=== PATIENT | male | born 1950 | race Caucasian/White ===

== ENCOUNTER 2020-02-02 17:07 | Inpatient (IN) ==
[2020-02-02] MEDS ORDERED: SODIUM CHLORIDE 0.9% 1000ML 1,000 ML IV SCH (19:30)
--- NOTE | 2020-02-02 19:30 | Emergency Department Note ---
Impression & Plan Lower gastrointestinal hemorrhage ED Provider Note NAME: SRINIVASAN FREEDMAN AGE: 69 SEX: M : 1950 ARRIVES VIA: Walk-In INFORMANT: Patient, ED PROVIDER(S): Ernie Thurman DO CHIEF COMPLAINT: Rectal bleeding HPI: The patient is a 69-year-old male who started noticing rectal bleeding last week. The patient has not had a history of similar episodes in the past. He did not see his family doctor for any symptoms. The patient states that it is ongoing and intermittent especially with any bowel movements. He has had some firm stools but for the most part it is been loose and bloody. He denies having any abdominal pain. He is had no nausea or vomiting. He notices no rashes. The patient does note significant shortness of breath with any exertion. He is also noticed generalized weakness. The patient does not take any blood thinners. He does have a history of hypertension. ROS: See above HPI for pertinent positives & negatives. A total of 10 systems reviewed and were otherwise negative. PAST MEDICAL HISTORY: See Below PAST SURGICAL HISTORY: See Below FAMILY HISTORY: See Below SOCIAL HISTORY: See Below HOME MEDICATIONS: See Below ALLERGIES: See Below VITALS: See Below PHYSICAL EXAMINATION: GENERAL: The patient is awake and alert. He is somewhat anxious appearing but overall comfortable. EYES: The conjunctivae are clear. The pupils are round and reactive. EARS, NOSE, MOUTH AND THROAT: The nose is without any evidence of any deformity. Mucous membranes are moist. Tongue is midline. NECK: The neck is nontender and supple. RESPIRATORY: Normal respiratory effort is noted there is no evidence of wheezing rhonchi or rales CARDIOVASCULAR: R tachycardic rate with regular rhythm was noted. There was no definite murmur. GASTROINTESTINAL: The abdomen is soft and nondistended. Stool was grossly bloody. MUSCULOSKELETAL/EXTREMITIES: There is no evidence of gross deformity full range of motion is noted in the hips and shoulders. SKIN: Skin was pale and dry. No pedal edema was noted. NEUROLOGIC: Patient is awake alert and oriented x3. MEDICAL DECISION MAKING: The patient is a 69-year-old male who presented to the emergency department for an evaluation of rectal bleeding. The patient was found to have gross blood per rectum. He also had very significant dyspnea on exertion. The patient was found to have a hemoglobin that was low compared to his baseline. He was sent for a type and screen but did not receive a blood transfusion in the emergency department. I discussed the patient's laboratory and radiographic studies with him. [facility] also [facility] have agreed to evaluate the patient in the emergency department for further management and disposition. I discussed this plan with the patient he was agreeable Triage Nursing notes reviewed. Prior medical records reviewed Vital Signs: reviewed and remarkable for elevated blood pressure. Differential diagnosis: Diverticulosis, AVM, coagulopathy, colitis, inflammatory bowel disease, malignancy, Milla-Krishna tear, esophagitis, peptic ulcer disease, variceal bleed, gastritis, epistaxis, fissure, hemorrhoids, as well as other pathologies. ER treatment provided: See below Diagnostics interpreted by me: ECG: none Cardiac Monitoring: An order was placed for continuous cardiac monitoring. The monitor shows a rate of 95 with sinus rhythm. Laboratory studies: As stated above and show below. Imaging studies: See below Consultation(s): [facility] to evaluate the patient in the emergency department for further management and disposition. Past Med/Surg History Medical History Hypertension Social History Preferred Language: Wolof Communication Ability: Effective Cafeteria Supervisor Required: No Beliefs That Will Affect Care: None Current Living Situation: Alone Other Information That Helps Us Care for You: No Feels Safe at Home: Yes Safety Concerns: Feels Safe At This Time Smoking Status: Former smoker Do You Dip or Chew Tobacco: No ; Smoking End Date: 1989 ; Second Hand Exposure: No ; Tobacco Cessation Education Requested by Patient: No Hx Alcohol Use: Yes Alcohol type: beer Hx Substance Use: No Allergies Allergies Allergy/AdvReac Type Severity Reaction Status Date / Time No Known Allergies Allergy Verified 02/02/20 19:49 Home Meds Home Medications Medication Instructions Recorded Confirmed No Known Home Medications 02/02/20 02/02/20 Results & Data (ED) Vital Signs Vital Signs - 24 hr 02/02/20 17:20 02/02/20 19:30 02/02/20 19:31 Temperature 37.2 C Temperature Source Oral Pulse Rate 124 H Pulse Rate [Apical] 93 H Pulse Rate from SpO2 Sensor Pulse Rhythm Regular Pulse Strength Normal Respiratory Rate 20 20 Respiratory Effort / Characteristics Non-Labored Respiratory Depth Normal Normal Respiratory Pattern Regular Blood Pressure 135/85 Blood Pressure [Left Arm] 132/93 Blood Pressure Mean 101 Blood Pressure Mean [Left Arm] 106 Blood Pressure Position Sitting Pulse Oximetry 98 99 100 Oxygen Delivery Method Room Air Room Air Room Air Sepsis Recent Fever Within 48 Hours No Sepsis Action Taken by Nursing No Action Required 02/02/20 19:45 02/02/20 20:00 02/02/20 20:30 Temperature Temperature Source Pulse Rate 86 88 81 Pulse Rate [Apical] Pulse Rate from SpO2 Sensor 89 89 Pulse Rhythm Pulse Strength Respiratory Rate 22 19 12 Respiratory Effort / Characteristics Respiratory Depth Respiratory Pattern Blood Pressure 122/109 H 129/93 119/79 Blood Pressure [Left Arm] Blood Pressure Mean 116 107 84 Blood Pressure Mean [Left Arm] Blood Pressure Position Pulse Oximetry 100 99 100 Oxygen Delivery Method Room Air Room Air Room Air Sepsis Recent Fever Within 48 Hours Sepsis Action Taken by Nursing 02/02/20 21:00 Temperature Temperature Source Pulse Rate 100 H Pulse Rate [Apical] Pulse Rate from SpO2 Sensor 95 H Pulse Rhythm Pulse Strength Respiratory Rate 20 Respiratory Effort / Characteristics Respiratory Depth Respiratory Pattern Blood Pressure 138/96 Blood Pressure [Left Arm] Blood Pressure Mean 106 Blood Pressure Mean [Left Arm] Blood Pressure Position Pulse Oximetry 100 Oxygen Delivery Method Room Air Sepsis Recent Fever Within 48 Hours Sepsis Action Taken by Residential Medications Current Medication List: was personally reviewed by me Laboratory Data Attestation: I reviewed the patient's lab results. Result diagrams: 02/02/20 19:32 02/02/20 19:32 Lab Results 02/02/20 02/02/20 02/02/20 Range/Units 19:32 19:32 19:32 WBC 8.43 (4.8-10.8) K/uL RBC 3.62 L (4.7-6.1) M/uL Hgb 10.4 L (14.0-18.0) g/dL Hct 33.6 L (42-52) % MCV 92.8 (80-100) fL MCH 28.7 (25-34) pg MCHC 31.0 L (32-36) g/dL RDW Std Deviation 81.5 H (36.4-46.3) fL RDW Coeff of [place] 24.5 H (11.5-14.5) % Plt Count 201 (130-400) K/uL Immature Gran % (Auto) 0.2 % Neut % (Auto) 66.6 % Lymph % (Auto) 25.4 % [place] % (Auto) 6.6 % Eos % (Auto) 1.1 % Baso % (Auto) 0.1 % Neut # (Auto) 5.61 (1.4-6.5) K/uL Lymph # (Auto) 2.14 (1.2-3.4) K/uL [place] # (Auto) 0.56 (0.11-0.59) K/uL Eos # (Auto) 0.09 (0-0.5) K/uL Baso # (Auto) 0.01 (0-0.2) K/uL Immature Gran # (Auto) 0.02 (0.00-0.02) K/uL Absolute Nucleated RBC 0.07 H (0-0) K/uL Nucleated RBC % (auto) 0.8 % Giant Platelets 1+ Basophilic Stippling 1+ Pappenheimer Bodies 1+ PT 11.0 (9.0-12.0) Seconds INR 1.0 (0.9-1.1) APTT 26.0 (21.0-31.0) Seconds PTT Ratio 0.9 Sodium (136-145) mmol/L Potassium (3.5-5.1) mmol/L Chloride (98-107) mmol/L Carbon Dioxide (21-32) mmol/L Anion Gap (3-11) BUN (7-18) mg/dl Creatinine (0.6-1.4) mg/dl Est Cr Clr Drug Dosing ml/min Est GFR ( Amer) Est GFR (Non-Af Amer) BUN/Creatinine Ratio (10-20) Glucose (70-99) mg/dl Calcium (8.5-10.1) mg/dl Total Bilirubin (0.2-1) mg/dl AST (15-37) U/L ALT (12-78) U/L Alkaline Phosphatase (45-117) U/L Troponin I (0-0.045) ng/ml Total Protein (6.4-8.2) gm/dl Albumin (3.4-5.0) gm/dl Globulin (2.5-4.0) gm/dl Albumin/Globulin Ratio (0.9-2) Lipase (73-393) U/L Stl C. diff Tox B Gene (Neg) Blood Type O Positive Antibody Screen NEGATIVE 02/02/20 02/02/20 Range/Units 19:32 19:43 WBC (4.8-10.8) K/uL RBC (4.7-6.1) M/uL Hgb (14.0-18.0) g/dL Hct (42-52) % MCV (80-100) fL MCH (25-34) pg MCHC (32-36) g/dL RDW Std Deviation (36.4-46.3) fL RDW Coeff of [place] (11.5-14.5) % Plt Count (130-400) K/uL Immature Gran % (Auto) % Neut % (Auto) % Lymph % (Auto) % [place] % (Auto) % Eos % (Auto) % Baso % (Auto) % Neut # (Auto) (1.4-6.5) K/uL Lymph # (Auto) (1.2-3.4) K/uL [place] # (Auto) (0.11-0.59) K/uL Eos # (Auto) (0-0.5) K/uL Baso # (Auto) (0-0.2) K/uL Immature Gran # (Auto) (0.00-0.02) K/uL Absolute Nucleated RBC (0-0) K/uL Nucleated RBC % (auto) % Giant Platelets Basophilic Stippling Pappenheimer Bodies PT (9.0-12.0) Seconds INR (0.9-1.1) APTT (21.0-31.0) Seconds PTT Ratio Sodium 140 (136-145) mmol/L Potassium 3.7 (3.5-5.1) mmol/L Chloride 107 (98-107) mmol/L Carbon Dioxide 25 (21-32) mmol/L Anion Gap 8.0 (3-11) BUN 14 (7-18) mg/dl Creatinine 1.07 (0.6-1.4) mg/dl Est Cr Clr Drug Dosing 57.1 ml/min Est GFR ( Amer) 82.8 Est GFR (Non-Af Amer) 71.5 BUN/Creatinine Ratio 13.3 (10-20) Glucose 130 H (70-99) mg/dl Calcium 8.1 L (8.5-10.1) mg/dl Total Bilirubin 1.1 H (0.2-1) mg/dl AST 16 (15-37) U/L ALT 20 (12-78) U/L Alkaline Phosphatase 47 (45-117) U/L Troponin I 0.022 (0-0.045) ng/ml Total Protein 7.0 (6.4-8.2) gm/dl Albumin 3.7 (3.4-5.0) gm/dl Globulin 3.3 (2.5-4.0) gm/dl Albumin/Globulin Ratio 1.1 (0.9-2) Lipase 103 (73-393) U/L Stl C. diff Tox B Gene Negative Cdiff Gene (Neg) Blood Type Antibody Screen Administered Medications Sodium Chloride (Nss 1000ml) 1,000 mls @ 100 mls/hr IV .Q10H [facility] Stop: 03/04/20 00:59 Last Admin: 02/02/20 23:47 Dose: 100 mls/hr Documented by: [id number] Pantoprazole Sodium 40 mg/ (Syringe) 10 mls @ 5 mls/min IV BID JARETH Stop: 03/03/20 22:59 Last Admin: 02/02/20 23:43 Dose: Not Given Documented by: [id number] Multivitamins 10 ml/ Thiamine HCl 100 mg/ Folic Acid 1 mg/Sodium Chloride 1,011.2 mls @ 500 mls/hr IV .Q2H2M ONE Stop: 02/03/20 01:01 Last Admin: 02/02/20 23:43 Dose: Not Given Documented by: [id number] Thiamine HCl 100 mg/ Syringe 10 mls @ 2 mls/min IV QAM [facility] Stop: 03/03/20 22:59 Last Admin: 02/02/20 23:43 Dose: Not Given Documented by: [id number] Folic Acid 1 mg/ Syringe 10 mls @ 5 mls/min IV QAM [facility] Stop: 03/03/20 22:59 Last Admin: 02/02/20 23:43 Dose: Not Given Documented by: [id number] Discontinued Medications Gabapentin (Neurontin) 1,200 mg PO ONE ONE Stop: 02/02/20 23:01 Last Admin: 02/02/20 23:43 Dose: Not Given Documented by: [id number] Sodium Chloride (Nss 1000ml) 1,000 mls @ 999 mls/hr IV .Q1H1M JARETH Stop: 02/02/20 20:30 Last Infusion: 02/02/20 20:35 Dose: 0 mls/hr Documented by: [id number] Admin: 02/02/20 19:41 Dose: 999 mls/hr Documented by: [id number] Imaging Data Radiologist's Impression: SINGLE VIEW CHEST CLINICAL HISTORY: Atypical chest pain. FINDINGS: 2 AP, portable, upright chest radiographs are obtained. No prior studies are available for comparison at the time of dictation. The examination is degraded by portable technique and patient rotation. The cardiomediastinal silhouette is unremarkable. The lungs are hyperinflated with flattening of the diaphragm suggesting obstructive physiology. Scattered calcified granulomas are observed. There are calcified hilar lymph nodes. No airspace consolidation, large pleural effusion, or pneumothorax is seen. The bony thorax is grossly intact. Degenerative change and mild scoliosis are noted in the thoracic spine. IMPRESSION: No acute cardiopulmonary abnormality. ACT 112: Negative or not required by law. Electronically signed by: Theo Dodge M.D. 02/02/2020 8:17 PM Dictated: 02/02/202014 Transcribed: 02/02/202014 KUB CLINICAL HISTORY: Atypical chest pain. GI bleeding. FINDINGS: An AP, portable, supine abdominal radiograph is obtained. No prior studies are available for comparison at the time of dictation. There is a non obstructed abdominal bowel gas pattern. No evidence of intraperitoneal free air is seen on this supine image. There are no abnormal abdominal calcifications. The skeletal structures are osteopenic. 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 The bony pelvis appears intact. IMPRESSION: Nonobstructed abdominal bowel gas pattern. Electronically signed by: Theo Dodge M.D. 02/02/2020 8:34 PM Dictated: 02/02/202031 Transcribed: 02/02/202031 Blood Pressure Blood Pressure Findings: Elevated blood pressure Blood Pressure Disposition: further management by hospitalist Discharge Plan Visit Data *Final* Discharge Date/Time: 02/02/20 22:14 Chief Complaint: Rectal Bleed Stated Complaint: RECTAL BLEED ED Provider: Ernie Thurman Discharge Problem: Lower gastrointestinal hemorrhage Patient Disposition: Admitted As Inpatient Condition: Good Discharge Instructions Interventions: ED Discharge Assessment Last Done: 02/02/20 22:14
[2020-02-02 19:56] LABS: Basophils # (auto) 0.01 K/uL (0-0.2); Basophils % (auto) 0.1 %; Eosinophils # (auto) 0.09 K/uL (0-0.5); Eosinophils % (auto) 1.1 %; Hematocrit (blood only) 33.6 % (42-52); Hemoglobin 10.4 g/dL (14.0-18.0); Immature Granulocytes # (auto) 0.02 K/uL (0.00-0.02); Immature Granulocytes % (auto) 0.2 %; Lymphocytes # (auto) 2.14 K/uL (1.2-3.4); Lymphocytes % (auto) 25.4 %; Mean Corpuscular Hemoglobin 28.7 pg (25-34); Mean Corpuscular Volume 92.8 fL (80-100); Monocytes # (auto) 0.56 K/uL (0.11-0.59); Monocytes % (auto) 6.6 %; Neutrophils # (auto) 5.61 K/uL (1.4-6.5); Neutrophils % (auto) 66.6 %; Nucleated RBC # (auto) 0.07 K/uL (0-0); Nucleated RBC % (auto) 0.8 %; Platelet Count 201 K/uL (130-400); RDW Coefficient of Variation 24.5 % (11.5-14.5); RDW Standard Deviation 81.5 fL (36.4-46.3); Red Blood Count 3.62 M/uL (4.7-6.1); White Blood Count 8.43 K/uL (4.8-10.8)
[2020-02-02 20:07] LABS: Partial Thromboplastin Ratio 0.9
--- NOTE | 2020-02-02 20:18 | XRay Report ---
SINGLE VIEW CHEST CLINICAL HISTORY: Atypical chest pain. FINDINGS: 2 AP, portable, upright chest radiographs are obtained. No prior studies are available for comparison at the time of dictation. The examination is degraded by portable technique and patient ro tation. The cardiomediastinal silhouette is unremarkable. The lungs are hyperinflated with flattenin g of the diaphragm suggesting obstructive physiology. Scattered calcified granulomas are observed. Th ere are calcified hilar lymph nodes. No airspace consolidation, large pleural effusion, or pneumothor ax is seen. The bony thorax is grossly intact. Degenerative change and mild scoliosis are noted in th e thoracic spine. IMPRESSION: No acute cardiopulmonary abnormality. ACT 112: Negative or not required by law. Electronically signed by: Theo Dodge M.D. 02/02/2020 8:17 PM
[2020-02-02 20:19] LABS: Albumin Level 3.7 gm/dl (3.4-5.0); BUN Creatinine Ratio 13.3 (10-20); Calcium 8.1 mg/dl (8.5-10.1); Creatinine Clr Calc Pharmacy 57.1 ml/min; Est GFR (African American) 82.8; Est GFR (Non-African American) 71.5; Potassium 3.7 mmol/L (3.5-5.1)
[2020-02-02 20:25] LABS: Albumin Globulin Ratio 1.1 (0.9-2); Bilirubin,Total 1.1 mg/dl (0.2-1); Globulin 3.3 gm/dl (2.5-4.0); Troponin I 0.022 ng/ml (0-0.045)
[2020-02-02 20:33] LABS: Basophilic Stippling 1+; Giant Platelets 1+; Pappenheimer Bodies 1+
--- NOTE | 2020-02-02 20:35 | XRay Report ---
KUB CLINICAL HISTORY: Atypical chest pain. GI bleeding. FINDINGS: An AP, portable, supine abdominal radiograph is obtained. No prior studies are available fo r comparison at the time of dictation. There is a nonobstructed abdominal bowel gas pattern. No evide nce of intraperitoneal free air is seen on this supine image. There are no abnormal abdominal calcifi cations. The skeletal structures are osteopenic. 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 The bony pel vis appears intact. IMPRESSION: Nonobstructed abdominal bowel gas pattern. Electronically signed by: Theo Dodge M.D. 02/02/2020 8:34 PM
[2020-02-02] MEDS ORDERED: LORazepam 2 MG/4 ML VIAL IV PRN (22:46)
[2020-02-02] MEDS ORDERED: ACETAMINOPHEN 325 MG TAB PO PRN (22:46)
[2020-02-02] MEDS ORDERED: LORazepam 3 MG/6 ML VIAL IV PRN (22:46)
[2020-02-02] MEDS ORDERED: ONDANSETRON INJ 2 MG/ML 2 ML VIAL IV PRN (22:46)
[2020-02-02] MEDS ORDERED: ATIVAN IV ALCOHOL WITHDRAWL IV PRN (22:46)
[2020-02-02] MEDS ORDERED: GABAPENTIN 1200MG ALCOHOL WITHDRAWAL LOAD PO STA (22:46)
[2020-02-02] MEDS ORDERED: NITROGLYCERIN SL 0.4 MG/TAB TAB SL PRN (22:46)
[2020-02-02] MEDS ORDERED: LORazepam 1 MG/2 ML VIAL IV PRN (22:46)
[2020-02-02] MEDS: FOLIC ACID 1 MG in SYRINGE 9.8 ML IV SCH ×2 (23:24→23:43)
[2020-02-02] MEDS: MULTI-VITAMIN INFUSION 10 ML, THIAMINE HCL 100 MG, FOLIC ACID 1 MG in SODIUM CHLORIDE 0... IV ONE ×2 (23:24→23:43)
[2020-02-02] MEDS: GABAPENTIN 600 MG TAB PO ONE ×2 (23:24→23:43)
[2020-02-02] MEDS: THIAMINE HCL 100 MG in SYRINGE 9 ML IV SCH ×2 (23:24→23:43)
[2020-02-02] MEDS: PANTOprazole 40 MG in SYRINGE 0 ML IV SCH ×2 (23:24→23:43)
[2020-02-02] MEDS: SODIUM CHLORIDE 0.9% 1000ML 1,000 ML IV SCH (23:47)
--- NOTE | 2020-02-02 23:52 | History and Physical Report ---
DATE OF ADMISSION: 02/02/2020 CHIEF COMPLAINT: Rectal bleed. HISTORY OF PRESENT ILLNESS: A 69-year-old male with past medical history significant for hypertension, but no longer taking medications, past tobacco abuse. He says that he has smoked since the age of 12 and quit in the age of 32s and ongoing alcohol abuse, he states he drinks 3-4 beers every day. He lives with his son and son's girlfriend, but son and his girlfriend,are in [place] now and he is alone. The patient says since last Sunday he started to notice a bleed from his rectum. It started slowly and progressively got worse and he is not able to eat anything since last 3 days and feeling weak and tired and dizzy. In the ER, he was having multiple bowel episodes with blood in the stools and was dizzy while walking, so we were called for admission. His hemodynamics are stable. His hemoglobin is 10.4. Creatinine is 1.07. Currently resting comfortably and hemodynamically stable. He complains of mild abdominal discomfort. Normal bladder movements. No nausea, no vomiting, no chest pain, no shortness of breath, no cough, no dysphagia, no loss of sense of smell or taste. No headache, no blurred vision, no earache, no runny nose, no sore throat, no fever, no chills. ALLERGIES: No known drug allergies. PAST MEDICAL HISTORY: As mentioned above. PAST SURGICAL HISTORY: Had a cervical spine surgery in . MEDICATIONS: Currently not taking any medications. FAMILY HISTORY: Significant for father and brother had SC, paternal grandmother had glaucoma, mother had stroke. SOCIAL HISTORY: Former smoker as per [employer], quit in 2003, smoked 1 pack a day for 20 years. Alcohol 4 beers every day. No drug use. REVIEW OF SYSTEMS: As per HPI. Rest of review of systems negative. PHYSICAL EXAMINATION: GENERAL: The patient is of moderate build, not in acute distress. VITAL SIGNS: Temperature 37.2, pulse 81, respiratory rate 12, blood pressure 119/79, oxygen 100% on room air. HEENT: No pallor, no icterus. NECK: No JVD, no neck masses. CARDIOVASCULAR: S1, S2 heard, regular rate and rhythm, no murmur, no gallop. RESPIRATORY SYSTEM: Normal AP diameter. No accessory muscle use. No wheezing, no crackles. ABDOMEN: Soft, bowel sounds present. Mild abdominal discomfort. No guarding, no rigidity, no distention. CENTRAL NERVOUS SYSTEM: Cranial nerves II-XII grossly intact. Nonfocal. EXTREMITIES: No edema, no erythema. LABORATORY DATA: WBC 8.4, hemoglobin 10.4, hematocrit 33.6, platelets 201, PT 11, INR 1, APTT 26. Sodium 140, potassium 3.7, chloride 107, bicarbonate 25, BUN 14, creatinine 1.07, serum glucose 130, calcium 8.1, total bilirubin 1.1, AST 116, ALT 20, alkaline phosphatase 47. Troponin I of 0.022, lipase 103. Stool for C. diff negative. IMAGING DATA: Chest x-ray, no acute cardiopulmonary findings. KUB, nonobstructive abdominal bowel gas pattern. EKG: Shows sinus rhythm with PACs at a rate of 79, nonspecific ST abnormalities seen. ASSESSMENT AND PLAN: This is a 69-year-old male who presents with rectal bleeding. 1. Rectal bleeding ongoing from last Sunday. His hemoglobin is 10.4. We do not have his old hemoglobin levels. The patient is somewhat symptomatic when ambulating, but hemodynamically stable currently. We will follow H and H q. 6 hours. Blood consent was obtained. We will place on IV Protonix 40 b.i.d. We will get CT of abdomen and pelvis to check for any diverticular bleed or any other ongoing pathology. We will keep him n.p.o., IV fluids, and consult GI in the a.m. for further recommendations. 2. Tobacco abuse, currently quit smoking. 3. Alcohol abuse, says he drinks about 4 beers a day. We will do the alcohol withdrawal protocol with gabapentin, IV Ativan p.r.n. We will give banana bag, IV thiamine, IV folic acid from a.m. Actually patient refused withdrawal meds. Monitor for withdrawals. 4. History of hypertension, currently not on any medications. Currently blood pressure seems to be stable. Follow up with PCP. 5. Deep venous thrombosis prophylaxis, sequential compression devices. DISPOSITION: Admit to med/surg tele. Level 1 full code. Expect to discharge home and follow with family doctor. Addendum: Patient refused alcohol withdrawal meds. Am labs hb 7.7. ordered 2 units of prbc. MTDD
[2020-02-03 05:33] LABS: Mean Corpuscular Hgb Conc 32.8 g/dL (32-36); Nucleated RBC # (auto) 0.02 K/uL (0-0); Nucleated RBC % (auto) 0.4 %
[2020-02-03 05:42] LABS: Hematocrit (blood only) 23.5 % (42-52); Hemoglobin 7.7 g/dL (14.0-18.0); Mean Corpuscular Volume 91.4 fL (80-100); RDW Coefficient of Variation 24.2 % (11.5-14.5); RDW Standard Deviation 80.6 fL (36.4-46.3); Red Blood Count 2.57 M/uL (4.7-6.1); White Blood Count 4.93 K/uL (4.8-10.8)
[2020-02-03] MEDS: GABAPENTIN 600 MG TAB PO SCH ×3 (05:42→17:52)
[2020-02-03 06:02] LABS: Anisocytosis Present; Basophils # (auto) 0.01 K/uL (0-0.2); Basophils % (auto) 0.2 %; Eosinophils # (auto) 0.15 K/uL (0-0.5); Hypochromasia Present; Immature Granulocytes # (auto) 0.01 K/uL (0.00-0.02); Immature Granulocytes % (auto) 0.2 %; Lymphocytes # (auto) 1.58 K/uL (1.2-3.4); Monocytes # (auto) 0.41 K/uL (0.11-0.59); Monocytes % (auto) 8.3 %; Neutrophils # (auto) 2.77 K/uL (1.4-6.5); Neutrophils % (auto) 56.3 %; Platelet Count 146 K/uL (130-400); Platelet Estimate Normal (Normal)
[2020-02-03 06:07] LABS: BUN Creatinine Ratio 16.9 (10-20); Creatinine Clr Calc Pharmacy 79.2 ml/min; Est GFR (African American) 108.3; Est GFR (Non-African American) 93.4; Magnesium 2.1 mg/dl (1.8-2.4); Potassium 3.7 mmol/L (3.5-5.1)
[2020-02-03] MEDS ORDERED: SODIUM CHLORIDE 0.9% 250 ML IV PRN (06:08)
[2020-02-03] MEDS ORDERED: FUROSEMIDE 20 MG in SYRINGE 0 ML IV ONE (06:30)
--- NOTE | 2020-02-03 06:39 | CT Scan Report ---
CT abd pelvis wo con CT DOSE: 373.71 mGy.cm HISTORY: Bleeding rectal bleed. diverticulosis? TECHNIQUE: Multiaxial CT images of the abdomen and pelvis were performed without contrast. A dose lo wering technique was utilized adhering to the principles of ALARA. COMPARISON STUDY: None. FINDINGS: The lung bases are clear. The unenhanced liver, spleen, gallbladder, pancreas, kidneys, and adrenal glands are within normal limits. No bowel wall thickening or obstruction. The pelvic organs are unremarkable. No suspicious lytic or blastic osseous lesions. Scattered colonic diverticuli. No e vidence for diverticulitis. Bilateral renal cysts. No evidence for an obstructing urinary tract calcu iwona. IMPRESSION: 1. Bilateral renal cysts. 2. Scattered colonic diverticulosis. 3. Otherwise no acute process of the abdomen or pelvis. ACT 112: Negative or not required by law. The above report was generated using voice recognition software. It may contain grammatical, syntax or spelling errors. Electronically signed by: Artemio Thapa M.D. 02/03/2020 6:38 AM
[2020-02-03] MEDS ORDERED: ACETAMINOPHEN 325 MG TAB PO ONE (07:00)
--- NOTE | 2020-02-03 08:07 | Electrocardiogram Report ---
Test Reason : Blood Pressure : / mmHG Vent. Rate : 079 BPM Atrial Rate : 079 BPM P-R Int : 128 ms QRS Dur : 072 ms QT Int : 346 ms P-R-T Axes : 076 059 081 degrees QTc Int : 396 ms Sinus rhythm with Premature atrial complexes Nonspecific T wave abnormality Lateral leads Abnormal ECG When compared with ECG of 05-OCT-2003 13:49, Premature atrial complexes are now Present Nonspecific T wave abnormality now evident in Lateral leads Confirmed by Jorge Knight ([id number]) on 02/03/2020 8:06:46 AM Referred By: REFERRED SELF Confirmed By:Jorge Knight
--- NOTE | 2020-02-03 09:41 | Hospitalist Progress Note ---
Date of Service February 03, 2020 Assessment & Plan (1) Lower gastrointestinal hemorrhage: (2) Acute blood loss anemia: Blood ordered, GI to see Labs checked ROS-No Headache, No Visual Changes, No Nausea, No Vomiting, No Fever, No Chills, No Neck Pain or Stiffness, No Chest Pain, No Palpitations, No SOB, No BERMUDEZ, No Cough, No Sputum, No Wheezing, No Abdominal Pain, No Diarrhea, No Hematemesis, No Hemoptysis, No Unexpected Weight Loss, No Flank pain, No Melena, + H ematochezia, No Frequency, No Urgency, No Burning, No Hematuria, No Rashes, No Diaphoresis. Appetite is Normal Physical Exam Gen-AAO x 3, NAD, Afebrile, Poor Dentition Head-NCAT, EOMI, PERRLA, Anicteric Sclera, No Posterior Pharyngeal Erythema Neck-Supple, No JVD, No Thyromegaly, No Masses, No LAD, No Bruits Lungs-Clear to Auscultation Bilaterally, No Rales, No Rhonchi, No Wheezing, No Crepitus Chest-No S4, +S1, +S2, No S3, No Murmurs, No Rubs, No Gallops, No Ectopy Abdomen-Soft, Bowel Sounds Present, Non Tender, Non Distended, No Hepatomegaly, No Splenomegaly, No Palpable Masses, No Rebound, No Rigidity, No Guarding Musculoskeletal-Full Range of Motion Bilaterally, No CVAT Extremities-No Cyanosis, No Clubbing, No Edema Nuero-Cranial Nerves II-XII grossly intact, Motor WNL, DTRs WNL, Strength WNL, Non Focal Psych-Normal Mood Admission and Anticipated Discharge Date Admission Date: February 02, 2020 Results & Data Results & Data ([facility]) Vital Signs (Past 12 Hours) Vital Signs Temp Pulse Pulse Resp BP BP BP 02/03/20 08:47 36.5 C 72 16 108/68 02/03/20 08:17 36.6 C 72 18 113/71 02/03/20 08:02 36.5 C 72 16 133/69 02/03/20 07:57 36.5 C 66 17 131/78 02/03/20 07:56 81 02/03/20 07:44 36.6 C 85 16 125/77 02/03/20 04:38 36.6 C 79 16 99/61 L 02/02/20 23:52 85 02/02/20 22:40 36.8 C 90 16 163/87 H 02/02/20 22:14 92 H 14 125/77 Pulse Ox 02/03/20 08:47 97 02/03/20 08:17 99 02/03/20 08:02 100 02/03/20 07:57 100 02/03/20 07:56 02/03/20 07:44 99 02/03/20 04:38 99 02/02/20 23:52 02/02/20 22:40 99 02/02/20 22:14 100
--- NOTE | 2020-02-03 09:59 | Gastrointestinal Consultation ---
Date of Consultation February 03, 2020 Assessment & Plan (1) Acute blood loss anemia: (2) Lower gastrointestinal hemorrhage: Pt is a 69 y/o male admitted w anemia, BRPBR, abd pain started 3 days ago. Cdiff negative, stool cx pending. CT abd/pelvis w/o contrast showed scattered diverticuli in colon. No inflammation/thickening/obstruction signs. Pt never had colonoscopy before. DDX: PUD bleed, AVM, diverticular bleeding, infectious colitis less likely, IBD - F/U stool cx - Continue Protonix 40mg IV BID for now - Monitor H/H, transfuse prn - CL diet, NPO after midnight. Plan for EGD/colonoscopy eval tomorrow Supervising Physician Co-Signing Physician Notes I have personally seen and examined the patient with ELIZABETH Bradley. Her note reflects my exam and findings. I agree with her impression and plan. Will arrange EGD/[place]. Most c/w diverticular bleed. Esteban Herman M.D. History of Present Illness Reason for Consultation: Rectal Bleeding Requesting Physician: Dr. Jose Juan Wolfe Attending Physician: Dr. Esteban Herman History of Present Illness Pt is a 69 y/o male who is admitted w rectal bleeding. He reports Sunday afternoon started to have lower abd cramping, passed flatus and noticed BRBPR. Between Sunday and Sunday he was having rectal bleeding every 2 hours w/o stools. He does have associated abd cramping but denies fever, chills, n/v. He did have light headedness after several bouts of rectal bleeding but denies any syncope, CP, SOB. He denies previous hx of PUD, hemorrhoids, recent sick contact, travel, antibx, raw/undercooked foods. On eval, H/H normal but Hgb dropped to 7 this AM. He is getting PRBC transfusion. BUN normal. Cdiff negative, stool cx pending. KUB, CXR unremarkable. CT abd/pelvis w/o contrast showed scattered diveticuli on colon, no sign of bowel thickening/inflammation/obstruction. Pt w hx of ankylosing spondylitis previously on Indocin but denies uses of year. He denies home meds including NSAIDs. Drinks about 2 beers a night. Denies family hx of IBD, colorectal ca. He never had any colonoscopy before. 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 Beliefs That Will Affect Care: None Current Living Situation: Alone Other Information That Helps Us Care for You: No Feels Safe at Home: Yes Safety Concerns: Feels Safe At This Time Smoking Status: Former smoker Do You Dip or Chew Tobacco: No ; Smoking End Date: 1989 ; Second Hand Exposure: No ; Tobacco Cessation Education Requested by Patient: No Hx Alcohol Use: Yes Alcohol type: beer Hx Substance Use: No Review of Systems Review of Systems: All systems reviewed & are unremarkable except as noted in HPI & below Physical Exam Constitutional: WD/WN, vitals as above well groomed, cooperative and comfortable Eyes: PERRL, conjunctivae normal, anicteric sclerae ENMT: external ear and nose normal, oropharynx normal Respiratory: normal respiratory effort, lungs clear to auscultation Cardiovascular: RRR, no murmur, no edema Gastrointestinal (Abdomen): Inspection/Auscultation: normal bowel sounds Percussion/Palpation: + abdomen tender (epigastric and cross lower abd) and abdomen soft Skin: no rashes, warm and dry no jaundice Psychiatric: A+Ox3, euthymic affect Lymphatic: no lymphedema Results & Data ([facility]) Vital Signs (Past 12 Hours) Vital Signs Temp Pulse Pulse Resp BP BP BP 02/03/20 08:47 36.5 C 72 16 108/68 02/03/20 08:17 36.6 C 72 18 113/71 02/03/20 08:02 36.5 C 72 16 133/69 02/03/20 07:57 36.5 C 66 17 131/78 02/03/20 07:56 81 02/03/20 07:44 36.6 C 85 16 125/77 02/03/20 04:38 36.6 C 79 16 99/61 L 02/02/20 23:52 85 02/02/20 22:40 36.8 C 90 16 163/87 H 02/02/20 22:14 92 H 14 125/77 Pulse Ox 02/03/20 08:47 97 02/03/20 08:17 99 02/03/20 08:02 100 02/03/20 07:57 100 02/03/20 07:56 02/03/20 07:44 99 02/03/20 04:38 99 02/02/20 23:52 02/02/20 22:40 99 02/02/20 22:14 100
[2020-02-03 10:33] LABS: Folate (Folic Acid) 14.1 ng/ml (>5.38)
[2020-02-03] MEDS: PANTOprazole 40 MG in SYRINGE 0 ML IV SCH ×2 (10:55→21:14)
[2020-02-03] MEDS: FOLIC ACID 1 MG in SYRINGE 9.8 ML IV SCH (10:55)
[2020-02-03] MEDS: THIAMINE HCL 100 MG in SYRINGE 9 ML IV SCH (10:56)
[2020-02-03 16:07] LABS: Hematocrit (blood only) 29.3 % (42-52); Hemoglobin 9.5 g/dL (14.0-18.0)
[2020-02-03] MEDS: SODIUM CHLORIDE 0.9% 1000ML 1,000 ML IV SCH (16:38)
[2020-02-03] MEDS ORDERED: bisacodyL 5 MG TABEC PO ONE (17:00)
[2020-02-03] MEDS ORDERED: POLYETHYLENE (MIRALAX) 17 GM PACK PO ONE ×2 (17:00→21:00)
[2020-02-03] MEDS ORDERED: HYDROmorphone INJ 0.5 MG/0.5 ML SYR ONE (20:31)
[2020-02-03 22:08] LABS: Hematocrit (blood only) 24.1 % (42-52); Hemoglobin 8.1 g/dL (14.0-18.0)
[2020-02-04] MEDS: SODIUM CHLORIDE 0.9% 1000ML 1,000 ML IV SCH ×4 (01:53→23:48)
[2020-02-04] MEDS: GABAPENTIN 600 MG TAB PO SCH ×4 (01:54→21:57)
[2020-02-04 02:23] LABS: BUN Creatinine Ratio 12.8 (10-20); Calcium 6.5 mg/dl (8.5-10.1); Creatinine Clr Calc Pharmacy 80.2 ml/min; Est GFR (African American) 108.8; Est GFR (Non-African American) 93.9; Potassium 3.6 mmol/L (3.5-5.1)
[2020-02-04 02:30] LABS: Hematocrit (blood only) 23.3 % (42-52); Hemoglobin 7.8 g/dL (14.0-18.0); Mean Corpuscular Hemoglobin 29.9 pg (25-34); Mean Corpuscular Hgb Conc 33.5 g/dL (32-36); Mean Corpuscular Volume 89.3 fL (80-100); Nucleated RBC # (auto) 0.05 K/uL (0-0); Platelet Count 137 K/uL (130-400); Platelet Estimate Normal (Normal); RDW Coefficient of Variation 21.5 % (11.5-14.5); Red Blood Count 2.61 M/uL (4.7-6.1); White Blood Count 4.97 K/uL (4.8-10.8)
[2020-02-04] MEDS ORDERED: SODIUM CHLORIDE 0.9% 250 ML IV PRN ×2 (03:07→06:48)
[2020-02-04] MEDS ORDERED: ACETAMINOPHEN 325 MG TAB PO ONE (04:00)
[2020-02-04] MEDS ORDERED: FUROSEMIDE 10 MG in SYRINGE 0 ML IV ONE (05:00)
[2020-02-04] MEDS: PANTOprazole 40 MG in SYRINGE 0 ML IV SCH (08:11)
[2020-02-04] MEDS: THIAMINE HCL 100 MG in SYRINGE 9 ML IV SCH (08:11)
[2020-02-04] MEDS: FOLIC ACID 1 MG in SYRINGE 9.8 ML IV SCH (08:12)
--- NOTE | 2020-02-04 08:19 | Anesthesiology Consultation ---
Date of Service February 04, 2020 Assessment & Plan (1) Encounter for pre-operative examination: Chart Review Chart Review: Acceptable Risk for Surgery History Surgery Operation Date: 02/04/20 16:00 Proposed Procedures p Colonoscopy EGD Dr Virgil Herman Height/Weight Height: 5 ft 9 in Weight: 62 kg Allergies Allergy/AdvReac Type Severity Reaction Status Date / Time No Known Allergies Allergy Verified 02/02/20 19:49 Medications Home Medications Medication Instructions Recorded Confirmed Last Taken No Known Home Medications 02/02/20 02/02/20 Unknown Active Medications Generic Name Dose Route Start Last Admin Trade Name Freq PRN Reason Stop Dose Admin Gabapentin 600 mg 02/03/20 19:00 02/04/20 01:54 Neurontin PO 02/04/20 11:01 Not Given Q8H JARETH Sodium Chloride 1,000 mls @ 100 mls/hr 02/03/20 01:00 02/04/20 08:11 Nss 1000ml IV 03/04/20 00:59 100 mls/hr .Q10H JARETH Administration Pantoprazole Sodium 40 mg/ 10 mls @ 5 mls/min 02/02/20 23:00 02/04/20 08:11 Syringe IV 03/03/20 22:59 5 mls/min BID JARETH Administration Thiamine HCl 100 mg/ Syringe 10 mls @ 2 mls/min 02/02/20 23:00 02/04/20 08:11 IV 03/03/20 22:59 2 mls/min QAM JARETH Administration Folic Acid 1 mg/ Syringe 10 mls @ 5 mls/min 02/02/20 23:00 02/04/20 08:12 IV 03/03/20 22:59 5 mls/min QAM JARETH Administration Sodium Chloride 250 mls @ 15 mls/hr 02/04/20 03:07 02/04/20 07:15 Nss IV 02/04/20 13:07 Infused .[id number] PRN Infusion For Transfusion Ondansetron HCl 4 mg 02/02/20 22:46 02/03/20 21:23 Zofran IV 03/03/20 22:45 4 mg Q6H PRN Administration Nausea Past Medical History Medical History (Updated 02/04/20 @ 08:23 by Geovanny Colon MD) Anemia Hypertension Past Surgical History Surgical History (Updated 02/04/20 @ 08:21 by Geovanny Colon MD) No pertinent past surgical history Social History Smoking Status: Former smoker Do You Dip or Chew Tobacco: No Smoking End Date: 1989 Hx Alcohol Use: Yes Alcohol type: beer alcohol intake frequency: a few times a week Hx Substance Use: No substance use type: does not use Physical Exam Vital Signs Last Vital Signs Temp 36.8 C 02/04/20 07:28 Pulse 74 02/04/20 07:28 Resp 18 02/04/20 07:28 BP 132/59 L 02/04/20 07:28 Pulse Ox 96 02/04/20 07:28 Testing Laboratory Results 02/04/20 01:51 02/04/20 01:51 PT 11.0 Seconds (9.0-12.0) 02/02/20 19:32 INR 1.0 (0.9-1.1) 02/02/20 19:32 APTT 26.0 Seconds (21.0-31.0) 02/02/20 19:32 Blood Type O Positive 02/02/20 19:32 Antibody Screen NEGATIVE 02/02/20 19:32 02/02/20 19:43 Escherichia coli Shiga Toxins Test - Preliminary Stool Stool Culture - Preliminary No Salmonella isolated to date, No Shigella isolated to date, No Campylobacter jejuni isolated to date. 02/02/20 19:43 WBC Smear - Final Stool Electrocardiogram Date: 02/02/20 Findings: + NSR @ (79) and + NSST changes Chest X-Ray Date: 02/02/20 Findings: + NAD
[2020-02-04 08:48] LABS: Albumin Level 2.7 gm/dl (3.4-5.0); BUN Creatinine Ratio 9.5 (10-20); Calcium 6.8 mg/dl (8.5-10.1); Creatinine Clr Calc Pharmacy 81.6 ml/min; Est GFR (African American) 108.8; Est GFR (Non-African American) 93.9; Magnesium 1.8 mg/dl (1.8-2.4); Potassium 3.5 mmol/L (3.5-5.1)
[2020-02-04 08:50] LABS: Hematocrit (blood only) 27.9 % (42-52); Hemoglobin 9.4 g/dL (14.0-18.0); Mean Corpuscular Hemoglobin 29.5 pg (25-34); Mean Corpuscular Hgb Conc 33.7 g/dL (32-36); Mean Corpuscular Volume 87.5 fL (80-100); Nucleated RBC # (auto) 0.03 K/uL (0-0); Nucleated RBC % (auto) 0.6 %; RDW Coefficient of Variation 20.2 % (11.5-14.5); RDW Standard Deviation 62.1 fL (36.4-46.3); Red Blood Count 3.19 M/uL (4.7-6.1); White Blood Count 4.86 K/uL (4.8-10.8)
[2020-02-04 08:54] LABS: Platelet Count 134 K/uL (130-400)
[2020-02-04 08:58] LABS: Albumin Globulin Ratio 1.1 (0.9-2); Globulin 2.4 gm/dl (2.5-4.0); Phosphorus 1.6 mg/dl (2.5-4.9); Total Protein 5.1 gm/dl (6.4-8.2)
--- NOTE | 2020-02-04 09:27 | Gastroenterology Progress Note ---
Date of Service February 04, 2020 Assessment & Plan (1) Acute blood loss anemia: (2) Lower gastrointestinal hemorrhage: Pt is a 69 y/o male admitted w anemia, BRPBR, abd pain started 3 days ago. Cdiff, stool cx negative. CT abd/pelvis w/o contrast showed scattered diverticuli in colon. No inflammation/thickening/obstruction signs. Pt never had colonoscopy before. DDX: PUD bleed, AVM, diverticular bleeding, infectious colitis less likely, IBD He received 3U PRBC transfusion w improvement of blood ct. He completed bowel prep and had been NPO for EGD/colonoscopy today - Continue Protonix 40mg IV BID for now - Monitor H/H, transfuse prn - Keep NPO. Plan for EGD/colonoscopy eval today. GI will give further recs after endoscopy is completed Admission and Anticipated Discharge Date Admission Date: February 02, 2020 Supervising Physician Co-Signing Physician Notes I have personally seen and examined the patient with ELIZABETH Bradley. Her note reflects my exam and findings. I agree with her impression and plan. No signs of further active bleeding this am. EGD/[place] today. Esteban Herman M.D. Subjective Pt completed bowel prep. He reports stools this AM was light brown. He denies abd pain, n/v. Review of Systems Review of Systems: All systems reviewed & are unremarkable except as noted in HPI & below Physical Exam Constitutional: WD/WN, vitals as above well groomed, cooperative and comfortable Eyes: PERRL, conjunctivae normal, anicteric sclerae ENMT: external ear and nose normal, oropharynx normal Respiratory: normal respiratory effort, lungs clear to auscultation Cardiovascular: RRR, no murmur, no edema Gastrointestinal (Abdomen): Inspection/Auscultation: normal bowel sounds and + hypoactive bowel sounds Percussion/Palpation: abdomen soft; abdomen nontender Skin: no rashes, warm and dry no jaundice Psychiatric: A+Ox3, euthymic affect Lymphatic: no lymphedema Results & Data ([facility]) Vital Signs (Past 12 Hours) Vital Signs Temp Pulse Pulse Resp BP BP BP 02/04/20 07:28 36.8 C 74 18 132/59 L 02/04/20 06:52 36.6 C 66 16 111/71 02/04/20 05:57 36.6 C 75 16 122/66 02/04/20 04:57 36.8 C 71 18 128/78 02/04/20 04:27 36.5 C 82 18 129/68 02/04/20 04:06 36.5 C 72 18 115/66 02/04/20 03:38 36.4 C L 75 16 102/61 02/03/20 23:22 36.5 C 72 18 147/80 H Pulse Ox 02/04/20 07:28 96 02/04/20 06:52 98 02/04/20 05:57 99 02/04/20 04:57 98 02/04/20 04:27 98 02/04/20 04:06 100 02/04/20 03:38 100 02/03/20 23:22 100
--- NOTE | 2020-02-04 11:29 | History & Physical Report ---
Date of Service February 04, 2020 Assessment & Plan (1) GI bleed: stable for egd/colonoscopy History of Present Illness Chief Complaint: GI bleeding Primary Care Provider: Tian William MD pt with GI bleeding for EGD/Colonoscopy Allergies Allergy/AdvReac Type Severity Reaction Status Date / Time No Known Allergies Allergy Verified 02/02/20 19:49 Home Medications Home Medications Medication Instructions Recorded Confirmed Type No Known Home Medications 02/02/20 02/02/20 History Past Med/Surg History Medical History (Updated 02/04/20 @ 11:29 by Esteban Herman) Anemia Hypertension Surgical History (Updated 02/04/20 @ 08:21 by Geovanny Colon MD) No pertinent past surgical history Social History Preferred Language: Romanian Communication Ability: Effective 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 Beliefs That Will Affect Care: None Current Living Situation: Alone Other Information That Helps Us Care for You: No Feels Safe at Home: Yes Safety Concerns: Feels Safe At This Time Smoking Status: Former smoker Do You Dip or Chew Tobacco: No ; Smoking End Date: 1989 ; Second Hand Exposure: No ; Tobacco Cessation Education Requested by Patient: No Hx Alcohol Use: Yes Alcohol type: beer Hx Substance Use: No Physical Exam Constitutional: WD/WN, vitals as above Respiratory: normal respiratory effort, lungs clear to auscultation Cardiovascular: RRR, no murmur, no edema Gastrointestinal (Abdomen): normal bowel sounds, soft, nontender, no hepatosplenomegaly Results & Data Vital Signs (Past 12 Hours) Vital Signs Temp Pulse Pulse Resp BP BP Pulse Ox 02/04/20 07:28 36.8 C 74 18 132/59 L 96 02/04/20 06:52 36.6 C 66 16 111/71 98 02/04/20 05:57 36.6 C 75 16 122/66 99 02/04/20 04:57 36.8 C 71 18 128/78 98 02/04/20 04:27 36.5 C 82 18 129/68 98 02/04/20 04:06 36.5 C 72 18 115/66 100 02/04/20 03:38 36.4 C L 75 16 102/61 100 Code Status & VTE Plan VTE Prophylaxis Plan VTE Prophylaxis will be ordered: Yes
[2020-02-04] MEDS ORDERED: fentaNYL citrate 100 MCG/2 ML VIAL ONE (11:42)
[2020-02-04] MEDS ORDERED: LIDOCAINE HCL 2% 2 ML VIAL/AMP(20MG/ML) INFIL ONE (11:42)
[2020-02-04] MEDS ORDERED: PROPOFOL IV EMULSION 10 MG/ML 20 ML VIAL IV ONE (11:42)
[2020-02-04] MEDS ORDERED: MIDAZOLAM HCL 1 MG/ML 2ML VIAL ONE (11:42)
[2020-02-04] MEDS ORDERED: PHENYLEPHRINE 100MCG/ML 5ML SYR ONE (12:10)
--- NOTE | 2020-02-04 12:26 | GI REPORT ---
Patient Name: Esvin Frey Procedure Date: 02/04/2020 11:36 AM Date of : 1950 Admit Type: Inpatient Age: 69 Gender: Male Attending MD: Esteban Herman MD Procedure: Upper GI endoscopy Providers: Esteban Herman MD Referring MD: Kobe Brewer Md Indications: Melena, Active gastrointestinal bleeding Medicines: See the Anesthesia note for documentation of the administered medications Complications: No immediate complications. Estimated Blood Loss: Estimated blood loss: none. Procedure: Pre-Anesthesia Assessment: - Prior to the procedure, a History and Physical was performed, and patient medications, allergies and sensitivities were reviewed. The patient's tolerance of previous anesthesia was reviewed. - The risks and benefits of the procedure and the sedation options and risks were discussed with the patient. All questions were answered and informed consent was obtained. - Patient identification and proposed procedure were verified prior to the procedure by the physician and the nurse. The procedure was verified in the pre-procedure area. - Pre-procedure physical examination revealed no contraindications to sedation. - After reviewing the risks and benefits, the patient was deemed in satisfactory condition to undergo the procedure. After obtaining informed consent, the endoscope was passed under direct vision. Throughout the procedure, the patient's blood pressure, pulse, and oxygen saturations were monitored continuously. The Endoscope was introduced through the mouth, and advanced to the third part of duodenum. The upper GI endoscopy was accomplished without difficulty. The patient tolerated the procedure well. Findings: The esophagus was normal. The stomach was normal. The examined duodenum was normal. The cardia and gastric fundus were normal on retroflexion. Impression: - Normal esophagus. - Normal stomach. - Normal examined duodenum. - No specimens collected. Recommendation: - Perform a colonoscopy today. Esteban Herman M.D. Esteban Herman MD 02/04/2020 12:26:08 PM This report has been signed electronically. Note Initiated On: 02/04/2020 11:36 AM Number of Addenda: 0 I attest to the content of the Intraoperative Record and orders documented therein, exceptions below {[id number]}
--- NOTE | 2020-02-04 12:28 | GI REPORT ---
Patient Name: Esvin Frey Procedure Date: 02/04/2020 11:36 AM Date of : 1950 Admit Type: Inpatient Age: 69 Gender: Male Attending MD: Esteban Herman MD Procedure: Colonoscopy Providers: Esteban Herman MD Referring MD: Kobe Brewer Md Indications: Hematochezia, Rectal bleeding Medicines: See the Anesthesia note for documentation of the administered medications Complications: No immediate complications. Estimated Blood Loss: Estimated blood loss: none. Procedure: Pre-Anesthesia Assessment: - See the other procedure note for documentation of the pre-procedure assessment. After I obtained informed consent, the scope was passed under direct vision. Throughout the procedure, the patient's blood pressure, pulse, and oxygen saturations were monitored continuously. The Colonoscope was introduced through the anus and advanced to the cecum, identified by appendiceal orifice and ileocecal valve. The colonoscopy was performed without difficulty. The patient tolerated the procedure well. The quality of the bowel preparation was good. Findings: The perianal and digital rectal examinations were normal. A small polyp was found in the transverse colon. The polyp was sessile. The polyp was removed with a cold snare. Resection and retrieval were complete. Verification of patient identification for the specimen was done by the physician and nurse using the patient's name and medical record number. Estimated blood loss was minimal. Multiple small-mouthed diverticula were found in the sigmoid colon. The exam was otherwise without abnormality on direct and retroflexion views. Impression: - One small polyp in the transverse colon, removed with a cold snare. Resected and retrieved. - Diverticulosis in the sigmoid colon. - The examination was otherwise normal on direct and retroflexion views. Recommendation: - [facility]. - Await pathology results. Esteban Herman M.D. Esteban Herman MD 02/04/2020 12:28:28 PM This report has been signed electronically. Note Initiated On: 02/04/2020 11:36 AM Number of Addenda: 0 I attest to the content of the Intraoperative Record and orders documented therein, exceptions below {[id number]}
--- NOTE | 2020-02-04 12:42 | Anesthesiology Progress Note ---
Date of Service February 04, 2020 Anesthesia Post Procedure Vital Signs Vital Signs: Temp Pulse Pulse Pulse Resp BP BP 02/04/20 12:28 78 18 103/72 02/04/20 12:13 87 14 100/62 02/04/20 11:31 37.0 C 85 20 139/73 02/04/20 08:00 73 02/04/20 07:28 36.8 C 74 18 02/04/20 06:52 36.6 C 66 16 111/71 02/04/20 05:57 36.6 C 75 16 122/66 02/04/20 04:57 36.8 C 71 18 128/78 02/04/20 04:27 36.5 C 82 18 129/68 02/04/20 04:06 36.5 C 72 18 115/66 02/04/20 03:38 36.4 C L 75 16 02/03/20 23:22 36.5 C 72 18 147/80 H 02/03/20 19:07 36.5 C 83 18 137/87 02/03/20 16:00 82 02/03/20 15:07 36.9 C 75 16 124/81 02/03/20 14:15 36.5 C 81 16 127/74 02/03/20 13:15 36.6 C 74 16 124/77 BP Pulse Ox 02/04/20 12:28 100 02/04/20 12:13 100 02/04/20 11:31 100 02/04/20 08:00 02/04/20 07:28 132/59 L 96 02/04/20 06:52 98 02/04/20 05:57 99 02/04/20 04:57 98 02/04/20 04:27 98 02/04/20 04:06 100 02/04/20 03:38 102/61 100 02/03/20 23:22 100 02/03/20 19:07 99 02/03/20 16:00 02/03/20 15:07 100 02/03/20 14:15 98 02/03/20 13:15 98 Transfer of Care Handoff Completed per policy Notes Mental Status: alert / awake / arousable Patient Amnestic to Procedure: Yes Nausea / Vomiting: adequately controlled Pain: adequately controlled Airway Patency, RR, SpO2: stable & adequate BP & HR: stable & adequate Hydration State: stable & adequate Anesthetic Complications: no major complications apparent
[2020-02-04 19:19] LABS: Hemoglobin 8.5 g/dL (14.0-18.0)
[2020-02-04 23:56] LABS: Hematocrit (blood only) 23.4 % (42-52); Hemoglobin 7.7 g/dL (14.0-18.0)
--- NOTE | 2020-02-04 23:56 | Hospitalist Progress Note ---
Date of Service February 04, 2020 Assessment & Plan (1) Lower gastrointestinal hemorrhage: (2) Acute blood loss anemia: This is a 69-year-old male who presents with rectal bleeding. 1. Rectal bleeding ongoing from last Sunday. His hemoglobin is 10.4 on admission. We do not have his old hemoglobin levels. The patient somewhat symptomatic when ambulating, but hemodynamically stable on admission. We will Follow H andH q. 6 hours. Blood consent was obtained. We will place on IV Prot john [address] of abdomen and pelvis to check for any diverticular bleed or any other ongoing pathology. We will keep him n.p.o., IV fluids, and consult GI for further recommendations. CT abdomen/pelvis: IMPRESSION: 1. Bilateral renal cysts. 2. Scattered colonic diverticulosis. 3. Otherwise no acute process of the abdomen or pelvis. GI consulted, recommend EGD and colonoscopy. Patient just underwent EGD/colonoscopy earlier today (02/04/2020). Further recommendations pending Patient had 2 bowel movements after endoscopies, no blood noted. Patient feels well. Update: In the evening called by RN that patient had again bloody bowel movements. H&H ordered. 2. Tobacco abuse, currently quit smoking. 3. Alcohol abuse, says he drinks about 4 beers a day. We will do the alcohol withdrawal protocol with gabapentin, IV Ativan p.r.n. banana bag, IV thiamine, IV folic acid from a.m. Actually patient refused withdrawal meds. Monitor for withdrawals. 4. History of hypertension, currently not on any medications. Currently blood pressure seems to be stable. Follow up with PCP. 5. Deep venous thrombosis prophylaxis, sequential compression devices. Admission and Anticipated Discharge Date Admission Date: February 02, 2020 Subjective Pt seen after EGD/ colonoscopy. Pt is ambulating in room, feeling well. Reports 2 BMs w/o any blood. Currently denies any chest pain, shortness of breath, nausea or vomiting. Also denies any fevers or chills. Overall he says that he feels well, back to his normal self. Update: by RN, pt had another bloody BM after I saw the pt H&H ordered Review of Systems Review of Systems: All systems reviewed & are unremarkable except as noted in HPI & below Constitutional: no fever and no chills Respiratory: no cough and no dyspnea Cardiovascular: no chest pain and no palpitations Gastrointestinal: no abdominal pain, no nausea and no vomiting Physical Exam Physical Exam: GENERAL: Elderly male, in no acute distress, ambulating in his room, 100% satting of O2 on room air HEENT: No pallor, no icterus. NECK: No JVD, no neck masses. CARDIOVASCULAR: S1, S2 heard, regular rate and rhythm, no murmur, no gallop RESPIRATORY SYSTEM: Normal AP diameter. No accessory muscle use. No wheezing, no crackles. ABDOMEN: Soft, bowel sounds present. No guarding, no rigidity, no distention. CENTRAL NERVOUS SYSTEM: Alert and oriented x3, no facial asymmetry, speech fluent, moves extremities spontaneously, ambulates without difficulty EXTREMITIES: No edema, no erythema. SKIN: Warm, dry, well perfused Results & Data Results & Data ([facility]) Vital Signs (Past 12 Hours) Vital Signs Temp Pulse Pulse Resp BP BP Pulse Ox 02/04/20 23:16 36.8 C 97 H 16 120/79 99 02/04/20 19:59 37.0 C 76 16 141/74 H 100 02/04/20 18:51 36.8 C 94 H 18 129/69 94 02/04/20 15:11 36.7 C 92 H 17 115/65 96 02/04/20 13:30 37.2 C 82 18 123/54 L 100 02/04/20 12:42 70 18 102/69 99 02/04/20 12:28 78 18 103/72 100 02/04/20 12:13 87 14 100/62 100 Laboratory Results 02/04/20 02/04/20 02/04/20 Range/Units 23:43 19:02 08:08 WBC (4.8-10.8) K/uL RBC (4.7-6.1) M/uL Hgb Pending 8.5 L (14.0-18.0) g/dL Hct Pending 25.0 L (42-52) % MCV (80-100) fL MCH (25-34) pg MCHC (32-36) g/dL RDW Std Deviation (36.4-46.3) fL RDW Coeff of Yecenia (11.5-14.5) % Plt Count (130-400) K/uL Absolute Nucleated RBC (0-0) K/uL Nucleated RBC % (auto) % Platelet Estimate (Normal) Sodium 140 (136-145) mmol/L Potassium 3.5 (3.5-5.1) mmol/L Chloride 111 H (98-107) mmol/L Carbon Dioxide 26 (21-32) mmol/L Anion Gap 4.0 (3-11) BUN 7 (7-18) mg/dl Creatinine 0.77 (0.6-1.4) mg/dl Est Cr Clr Drug Dosing 81.6 ml/min Est GFR ( Amer) 108.8 Est GFR (Non-Af Amer) 93.9 BUN/Creatinine Ratio 9.5 L (10-20) Glucose 100 H (70-99) mg/dl Calcium 6.8 L (8.5-10.1) mg/dl Phosphorus 1.6 L (2.5-4.9) mg/dl Magnesium 1.8 (1.8-2.4) mg/dl Total Bilirubin 1.0 (0.2-1) mg/dl AST 11 L (15-37) U/L ALT 16 (12-78) U/L Alkaline Phosphatase 30 L (45-117) U/L Total Protein 5.1 L D (6.4-8.2) gm/dl Albumin 2.7 L (3.4-5.0) gm/dl Globulin 2.4 L (2.5-4.0) gm/dl Albumin/Globulin Ratio 1.1 (0.9-2) Blood Type Antibody Screen Crossmatch 02/04/20 02/04/20 02/04/20 Range/Units 08:08 01:51 01:51 WBC 4.86 4.97 (4.8-10.8) K/uL RBC 3.19 L 2.61 L (4.7-6.1) M/uL Hgb 9.4 L 7.8 L (14.0-18.0) g/dL Hct 27.9 L 23.3 L (42-52) % MCV 87.5 89.3 (80-100) fL MCH 29.5 29.9 (25-34) pg MCHC 33.7 33.5 (32-36) g/dL RDW Std Deviation 62.1 H 70.0 H (36.4-46.3) fL RDW Coeff of Yecenia 20.2 H 21.5 H (11.5-14.5) % Plt Count 134 137 (130-400) K/uL Absolute Nucleated RBC 0.03 H 0.05 H (0-0) K/uL Nucleated RBC % (auto) 0.6 1.0 % Platelet Estimate Normal (Normal) Sodium 140 (136-145) mmol/L Potassium 3.6 (3.5-5.1) mmol/L Chloride 113 H (98-107) mmol/L Carbon Dioxide 25 (21-32) mmol/L Anion Gap 2.0 L (3-11) BUN 10 (7-18) mg/dl Creatinine 0.77 (0.6-1.4) mg/dl Est Cr Clr Drug Dosing 80.2 ml/min Est GFR ( Amer) 108.8 Est GFR (Non-Af Amer) 93.9 BUN/Creatinine Ratio 12.8 (10-20) Glucose 146 H (70-99) mg/dl Calcium 6.5 L (8.5-10.1) mg/dl Phosphorus (2.5-4.9) mg/dl Magnesium (1.8-2.4) mg/dl Total Bilirubin (0.2-1) mg/dl AST (15-37) U/L ALT (12-78) U/L Alkaline Phosphatase (45-117) U/L Total Protein (6.4-8.2) gm/dl Albumin (3.4-5.0) gm/dl Globulin (2.5-4.0) gm/dl Albumin/Globulin Ratio (0.9-2) Blood Type Antibody Screen Crossmatch 02/02/20 Range/Units 19:32 WBC (4.8-10.8) K/uL RBC (4.7-6.1) M/uL Hgb (14.0-18.0) g/dL Hct (42-52) % MCV (80-100) fL MCH (25-34) pg MCHC (32-36) g/dL RDW Std Deviation (36.4-46.3) fL RDW Coeff of Yecenia (11.5-14.5) % Plt Count (130-400) K/uL Absolute Nucleated RBC (0-0) K/uL Nucleated RBC % (auto) % Platelet Estimate (Normal) Sodium (136-145) mmol/L Potassium (3.5-5.1) mmol/L Chloride (98-107) mmol/L Carbon Dioxide (21-32) mmol/L Anion Gap (3-11) BUN (7-18) mg/dl Creatinine (0.6-1.4) mg/dl Est Cr Clr Drug Dosing ml/min Est GFR ( Amer) Est GFR (Non-Af Amer) BUN/Creatinine Ratio (10-20) Glucose (70-99) mg/dl Calcium (8.5-10.1) mg/dl Phosphorus (2.5-4.9) mg/dl Magnesium (1.8-2.4) mg/dl Total Bilirubin (0.2-1) mg/dl AST (15-37) U/L ALT (12-78) U/L Alkaline Phosphatase (45-117) U/L Total Protein (6.4-8.2) gm/dl Albumin (3.4-5.0) gm/dl Globulin (2.5-4.0) gm/dl Albumin/Globulin Ratio (0.9-2) Blood Type O Positive Antibody Screen NEGATIVE Crossmatch See Detail Medications Administered Current Inpatient Medications Acetaminophen (Tylenol) 650 mg PO Q4H PRN PRN Reason: Pain or Fever Stop: 03/03/20 22:45 Gabapentin (Neurontin) 600 mg PO Q12H [facility] Stop: 02/05/20 11:01 Last Admin: 02/04/20 21:57 Dose: Not Given Documented by: Gabapentin (Neurontin) 600 mg PO Q24H [facility] Stop: 02/06/20 11:01 Lorazepam (Ativan) 1 mg in 2 mls @ 2 mls/min IV UD PRN; Protocol PRN Reason: EtOH Withdrawl AWSS Score 6,7 Stop: 03/03/20 22:45 Lorazepam (Ativan) 2 mg in 4 mls @ 4 mls/min IV UD PRN; Protocol PRN Reason: EtOH Withdrawl AWSS Score 8,9 Stop: 03/03/20 22:45 Lorazepam (Ativan) 3 mg in 6 mls @ 4 mls/min IV ONCE PRN; Protocol PRN Reason: EtOH Withdrawl AWSS Score >=10 Stop: 03/03/20 22:45 Sodium Chloride (Nss 1000ml) 1,000 mls @ 100 mls/hr IV .Q10H [facility] Stop: 03/04/20 00:59 Last Admin: 02/04/20 23:48 Dose: Not Given Documented by: Thiamine HCl 100 mg/ Syringe 10 mls @ 2 mls/min IV QAM [facility] Stop: 03/03/20 22:59 Last Admin: 02/04/20 08:11 Dose: 2 mls/min Documented by: Folic Acid 1 mg/ Syringe 10 mls @ 5 mls/min IV QAM [facility] Stop: 03/03/20 22:59 Last Admin: 02/04/20 08:12 Dose: 5 mls/min Documented by: Nitroglycerin (Nitrostat) 0.4 mg SL UD PRN PRN Reason: Chest Pain Stop: 03/03/20 22:45 Ondansetron HCl (Zofran) 4 mg IV Q6H PRN PRN Reason: Nausea Stop: 03/03/20 22:45 Last Admin: 02/03/20 21:23 Dose: 4 mg Documented by:
[2020-02-05] MEDS ORDERED: SODIUM CHLORIDE 0.9% 250 ML IV PRN (00:18)
[2020-02-05 06:16] LABS: Mean Corpuscular Hgb Conc 33.7 g/dL (32-36); Nucleated RBC # (auto) 0.06 K/uL (0-0); Nucleated RBC % (auto) 1.3 %
[2020-02-05 06:40] LABS: Hematocrit (blood only) 26.7 % (42-52); Mean Corpuscular Hemoglobin 30.1 pg (25-34); Mean Corpuscular Volume 89.3 fL (80-100); RDW Coefficient of Variation 20.1 % (11.5-14.5); RDW Standard Deviation 63.1 fL (36.4-46.3); Red Blood Count 2.99 M/uL (4.7-6.1); White Blood Count 4.73 K/uL (4.8-10.8)
[2020-02-05 06:41] LABS: Platelet Count 134 K/uL (130-400); Platelet Estimate Normal (Normal)
--- NOTE | 2020-02-05 09:28 | Gastroenterology Progress Note ---
Date of Service February 05, 2020 Assessment & Plan (1) Acute blood loss anemia: (2) Lower gastrointestinal hemorrhage: Pt is a 69 y/o male admitted w anemia, BRPBR, abd pain started 3 days ago. Cdiff, stool cx negative. CT abd/pelvis w/o contrast showed scattered diverticuli in colon. No inflammation/thickening/obstruction signs. Pt never had colonoscopy before. DDX: PUD bleed, AVM, diverticular bleeding, infectious colitis less likely, IBD EGD/Colonoscopy yesterday showed no active GI bleeding with diverticulosis as likely source. He had more rectal bleeding on midnight and this AM. Received 1u PRBC transfusion last night. - Keep NPO now - Obtain GI bleeding scan - Monitor blood ct closely and transfuse prn - Hospitalist mentioned pt's family wants pt to be transferred to tertiary care center. Pt appears stable and as I relayed the plans above, he said he's willing to stay to obtain further workup before determining if we need to transfer him to tertiary care center or not. I called and spoke w pt's son Kye, also addressed his questions/concerns, informed him of my plans above . Kye ended the call with me satisfied with answers to his concerns and also plans. Admission and Anticipated Discharge Date Admission Date: February 02, 2020 Supervising Physician Co-Signing Physician Notes Most c/w diverticular bleed. If rebleeds will need either bleeding scan or interventional radiology involvement. Subjective Paged by RN and hospitalist that pt had more rectal bleeding around midnight and this AM. Hgb down to 7 last night, pt transfused 1U PRBC, and Hgb up to 9 today Pt denies dizziness, CP, SOB, abd pain, n/v. He had solid meals this AM Review of Systems Review of Systems: All systems reviewed & are unremarkable except as noted in HPI & below Physical Exam Constitutional: WD/WN, vitals as above well groomed, cooperative and comfortable Eyes: PERRL, conjunctivae normal, anicteric sclerae ENMT: external ear and nose normal, oropharynx normal Respiratory: normal respiratory effort, lungs clear to auscultation Cardiovascular: RRR, no murmur, no edema Gastrointestinal (Abdomen): Inspection/Auscultation: normal bowel sounds and + hypoactive bowel sounds Percussion/Palpation: abdomen soft; abdomen nontender Skin: no rashes, warm and dry no jaundice Psychiatric: A+Ox3, euthymic affect Lymphatic: no lymphedema Results & Data ([facility]) Vital Signs (Past 12 Hours) Vital Signs Temp Pulse Pulse Pulse Resp BP BP 02/05/20 07:58 36.9 C 86 18 154/87 H 02/05/20 03:47 37 C 84 16 02/05/20 02:58 36.9 C 70 18 139/69 02/05/20 02:56 36.9 C 70 18 139/69 02/05/20 01:56 37.0 C 81 18 133/76 02/05/20 01:26 37.2 C 82 18 127/78 02/05/20 01:11 37.1 C 71 18 126/76 02/05/20 00:54 37.3 C 78 18 113/67 02/04/20 23:16 36.8 C 97 H 16 120/79 02/04/20 22:23 79 BP Pulse Ox 02/05/20 07:58 100 02/05/20 03:47 101/62 94 02/05/20 02:58 97 02/05/20 02:56 97 02/05/20 01:56 98 02/05/20 01:26 97 02/05/20 01:11 97 02/05/20 00:54 99 02/04/20 23:16 99 02/04/20 22:23
--- NOTE | 2020-02-05 09:59 | Hospitalist Progress Note ---
Date of Service February 05, 2020 Assessment & Plan (1) Lower gastrointestinal hemorrhage: (2) Acute blood loss anemia: This is a 69-year-old male who presents with rectal bleeding. 1. Rectal bleeding ongoing from last Sunday. His hemoglobin is 10.4 on admission. We do not have his old hemoglobin levels. The patient somewhat symptomatic when ambulating, but hemodynamically stable on admission. We will Follow H andH q. 6 hours. Blood consent was obtained. We will place on IV Prot john [address] of abdomen and pelvis to check for any diverticular bleed or any other ongoing pathology. We will keep him n.p.o., IV fluids, and consult GI for further recommendations. CT abdomen/pelvis: IMPRESSION: 1. Bilateral renal cysts. 2. Scattered colonic diverticulosis. 3. Otherwise no acute process of the abdomen or pelvis. GI consulted, recommend EGD and colonoscopy. Patient just underwent EGD/colonoscopy earlier today (02/04/2020). Further recommendations pending Patient had 2 bowel movements after endoscopies, no blood noted. Patient feels well. In the evening called by RN that patient had again bloody bowel movements. Also had bloody bowel movements this morning, February 05, 2020. Overnight required blood transfusion. Discussed with GI, plan for GI bleeding scan (02/05/2020) 2. Tobacco abuse, currently quit smoking. 3. Alcohol abuse, says he drinks about 4 beers a day. We will do the alcohol withdrawal protocol with gabapentin, IV Ativan p.r.n. banana bag, IV thiamine, IV folic acid from a.m. Actually patient refused withdrawal meds. Monitor for withdrawals. 4. History of hypertension, currently not on any medications. Currently blood pressure seems to be stable. Follow up with PCP. 5. Deep venous thrombosis prophylaxis, sequential compression devices. Admission and Anticipated Discharge Date Admission Date: February 02, 2020 Subjective Patient had another bloody bowel movement last evening, and also this morning. Overnight required transfusion of 1 unit of PRBCs. Currently hemoglobin 9.0, patient feels well, ambulating in his room without difficulty. Denies any chest pain, shortness of breath, abdominal pain, nausea or vomiting. Also denies any dizziness or lightheadedness. Discussed with GI, plan for GI bleeding scan. Plan to monitor H&H. Updated son Juwan at . Son concerned about ongoing bleeding, considering possible transfer. Will have GI to also discuss with son. Review of Systems Review of Systems: All systems reviewed & are unremarkable except as noted in HPI & below Constitutional: no fever and no chills Respiratory: no cough and no dyspnea Cardiovascular: no chest pain and no palpitations Gastrointestinal: + blood in stools; no abdominal pain, no nausea and no vomiting Physical Exam Physical Exam: GENERAL: Elderly male, in no acute distress, ambulating in his room, 100% satting of O2 on room air HEENT: No pallor, no icterus. NECK: No JVD, no neck masses. CARDIOVASCULAR: S1, S2 heard, regular rate and rhythm, no murmur, no gallop RESPIRATORY SYSTEM: Normal AP diameter. No accessory muscle use. No wheezing, no crackles. ABDOMEN: Soft, bowel sounds present. No guarding, no rigidity, no distention. CENTRAL NERVOUS SYSTEM: Alert and oriented x3, no facial asymmetry, speech fluent, moves extremities spontaneously, ambulates without difficulty EXTREMITIES: No edema, no erythema. SKIN: Warm, dry, well perfused Results & Data Results & Data ([facility]) Vital Signs (Past 12 Hours) Vital Signs Temp Pulse Pulse Pulse Resp BP BP 02/05/20 07:58 36.9 C 86 18 154/87 H 02/05/20 03:47 37 C 84 16 02/05/20 02:58 36.9 C 70 18 139/69 02/05/20 02:56 36.9 C 70 18 139/69 02/05/20 01:56 37.0 C 81 18 133/76 02/05/20 01:26 37.2 C 82 18 127/78 02/05/20 01:11 37.1 C 71 18 126/76 02/05/20 00:54 37.3 C 78 18 113/67 02/04/20 23:16 36.8 C 97 H 16 120/79 02/04/20 22:23 79 BP Pulse Ox 02/05/20 07:58 100 02/05/20 03:47 101/62 94 02/05/20 02:58 97 02/05/20 02:56 97 02/05/20 01:56 98 02/05/20 01:26 97 02/05/20 01:11 97 02/05/20 00:54 99 02/04/20 23:16 99 02/04/20 22:23 Laboratory Results 02/05/20 02/04/20 02/04/20 Range/Units 05:32 23:43 19:02 WBC 4.73 L (4.8-10.8) K/uL RBC 2.99 L (4.7-6.1) M/uL Hgb 9.0 L 7.7 L 8.5 L (14.0-18.0) g/dL Hct 26.7 L 23.4 L 25.0 L (42-52) % MCV 89.3 (80-100) fL MCH 30.1 (25-34) pg MCHC 33.7 (32-36) g/dL RDW Std Deviation 63.1 H (36.4-46.3) fL RDW Coeff of Yecenia 20.1 H (11.5-14.5) % Plt Count 134 (130-400) K/uL Absolute Nucleated RBC 0.06 H (0-0) K/uL Nucleated RBC % (auto) 1.3 % Platelet Estimate Normal (Normal) Blood Type Antibody Screen Crossmatch 02/02/20 Range/Units 19:32 WBC (4.8-10.8) K/uL RBC (4.7-6.1) M/uL Hgb (14.0-18.0) g/dL Hct (42-52) % MCV (80-100) fL MCH (25-34) pg MCHC (32-36) g/dL RDW Std Deviation (36.4-46.3) fL RDW Coeff of Yecenia (11.5-14.5) % Plt Count (130-400) K/uL Absolute Nucleated RBC (0-0) K/uL Nucleated RBC % (auto) % Platelet Estimate (Normal) Blood Type O Positive Antibody Screen NEGATIVE Crossmatch See Detail Medications Administered Current Inpatient Medications Acetaminophen (Tylenol) 650 mg PO Q4H PRN PRN Reason: Pain or Fever Stop: 03/03/20 22:45 Gabapentin (Neurontin) 600 mg PO Q12H [facility] Stop: 02/05/20 11:01 Last Admin: 02/04/20 21:57 Dose: Not Given Documented by: Gabapentin (Neurontin) 600 mg PO Q24H [facility] Stop: 02/06/20 11:01 Lorazepam (Ativan) 1 mg in 2 mls @ 2 mls/min IV UD PRN; Protocol PRN Reason: EtOH Withdrawl AWSS Score 6,7 Stop: 03/03/20 22:45 Lorazepam (Ativan) 2 mg in 4 mls @ 4 mls/min IV UD PRN; Protocol PRN Reason: EtOH Withdrawl AWSS Score 8,9 Stop: 03/03/20 22:45 Lorazepam (Ativan) 3 mg in 6 mls @ 4 mls/min IV ONCE PRN; Protocol PRN Reason: EtOH Withdrawl AWSS Score >=10 Stop: 03/03/20 22:45 Thiamine HCl 100 mg/ Syringe 10 mls @ 2 mls/min IV QAM [facility] Stop: 03/03/20 22:59 Last Admin: 02/04/20 08:11 Dose: 2 mls/min Documented by: Folic Acid 1 mg/ Syringe 10 mls @ 5 mls/min IV QAM [facility] Stop: 03/03/20 22:59 Last Admin: 02/04/20 08:12 Dose: 5 mls/min Documented by: Sodium Chloride (Nss) 250 mls @ 15 mls/hr IV .[id number] PRN PRN Reason: For Transfusion Stop: 02/05/20 10:18 Nitroglycerin (Nitrostat) 0.4 mg SL UD PRN PRN Reason: Chest Pain Stop: 03/03/20 22:45 Ondansetron HCl (Zofran) 4 mg IV Q6H PRN PRN Reason: Nausea Stop: 03/03/20 22:45 Last Admin: 02/03/20 21:23 Dose: 4 mg Documented by:
[2020-02-05] MEDS: THIAMINE HCL 100 MG in SYRINGE 9 ML IV SCH (11:01)
[2020-02-05] MEDS: GABAPENTIN 600 MG TAB PO SCH (11:01)
[2020-02-05] MEDS: FOLIC ACID 1 MG in SYRINGE 9.8 ML IV SCH (11:01)
--- NOTE | 2020-02-05 14:49 | Hospitalist Progress Note ---
Date of Service February 05, 2020 Assessment & Plan Admission and Anticipated Discharge Date Admission Date: February 02, 2020 Subjective Notified by nursing staff, that patient needed to leave due to personal issues. When I arrived to his room, patient was already gone. Notified by nursing staff that patient did leave AMA. Results & Data Results & Data ([facility]) Vital Signs (Past 12 Hours) Vital Signs Temp Pulse Pulse Pulse Resp BP BP 02/05/20 11:25 36.9 C 81 19 150/76 H 02/05/20 08:00 78 02/05/20 07:58 36.9 C 86 18 154/87 H 02/05/20 03:47 37 C 84 16 02/05/20 02:58 36.9 C 70 18 139/69 02/05/20 02:56 36.9 C 70 18 139/69 BP Pulse Ox 02/05/20 11:25 100 02/05/20 08:00 02/05/20 07:58 100 02/05/20 03:47 101/62 94 02/05/20 02:58 97 02/05/20 02:56 97
--- NOTE | 2020-02-05 16:05 | Discharge Summary ---
Date of Service February 05, 2020 Admission HPI Per Admitting Provider A 69-year-old male with past medical history significant for hypertension, but no longer taking medications, past tobacco abuse. He says that he has smoked since the age of 12 and quit in the age of 32s and ongoing alcohol abuse, he states he drinks 3-4 beers every day. He lives with his son and son's girlfriend, but son and his girlfriend,are in [place] now and he is alone. The patient says since last Sunday he started to notice a bleed from his rectum. It started slowly and progressively got worse and he is not able to eat anything since last 3 days and feeling weak and tired and dizzy. In the ER, he was having multiple bowel episodes with blood in the stools and was dizzy while walking, so we were called for admission. His hemodynamics are stable. His hemoglobin is 10.4. Creatinine is 1.07. Currently resting comfortably and hemodynamically stable. He complains of mild abdominal discomfort. Normal bladder movements. No nausea, no vomiting, no chest pain, no shortness of breath, no cough, no dysphagia, no loss of sense of smell or taste. No headache, no blurred vision, no earache, no runny nose, no sore throat, no fever, no chills. Admission Exam Per Admitting Provider GENERAL: The patient is of moderate build, not in acute distress. VITAL SIGNS: Temperature 37.2, pulse 81, respiratory rate 12, blood pressure 119/79, oxygen 100% on room air. HEENT: No pallor, no icterus. NECK: No JVD, no neck masses. CARDIOVASCULAR: S1, S2 heard, regular rate and rhythm, no murmur, no gallop. RESPIRATORY SYSTEM: Normal AP diameter. No accessory muscle use. No wheezing, no crackles. ABDOMEN: Soft, bowel sounds present. Mild abdominal discomfort. No guarding, no rigidity, no distention. CENTRAL NERVOUS SYSTEM: Cranial nerves II-XII grossly intact. Nonfocal. EXTREMITIES: No edema, no erythema. Principal Diagnosis GI bleed Discharge Exam GENERAL: Elderly male, in no acute distress, ambulating in his room, 100% satting of O2 on room air HEENT: No pallor, no icterus. NECK: No JVD, no neck masses. CARDIOVASCULAR: S1, S2 heard, regular rate and rhythm, no murmur, no gallop RESPIRATORY SYSTEM: Normal AP diameter. No accessory muscle use. No wheezing, no crackles. ABDOMEN: Soft, bowel sounds present. No guarding, no rigidity, no distention. CENTRAL NERVOUS SYSTEM: Alert and oriented x3, no facial asymmetry, speech fluent, moves extremities spontaneously, ambulates without difficulty EXTREMITIES: No edema, no erythema. SKIN: Warm, dry, well perfused Discharge Data Allergies Allergy/AdvReac Type Severity Reaction Status Date / Time No Known Allergies Allergy Verified 02/02/20 19:49 Consultations 02/02/20 21:16 ED Decision to Admit Stat 02/02/20 22:46 Consult Case Management - Discharge Planning Routine 02/03/20 08:00 Consult Gastroenterology Routine Procedures Performed Operation Date: 02/04/20 16:00 Actual Procedures p Esophagogastroduodenoscopy - Esteban Herman s Colonoscopy Polypectomy - Esteban Herman Ordered Studies 02/02/20 21:53 CT abd pelvis wo con Urgent IMPRESSION: 1. Bilateral renal cysts. 2. Scattered colonic diverticulosis. 3. Otherwise no acute process of the abdomen or pelvis. Hospital Course (1) Lower gastrointestinal hemorrhage: (2) Acute blood loss anemia: This is a 69-year-old male who presents with rectal bleeding. 1. Rectal bleeding ongoing from last Sunday. Hemoglobin 10.4 on admission. We do not have his old hemoglobin levels. The patient somewhat symptomatic when ambulating, but hemodynamically stable on admission. We will follow H and H q. 6 hours. Blood consent was obtained. Started IV Protonix [address] of abdomen and pelvis to check for any diverticular bleed or any other ongoing pathology. n.p.o., IV fluids, and consult GI for further recommendations. CT abdomen/pelvis: IMPRESSION: 1. Bilateral renal cysts. 2. Scattered colonic diverticulosis. 3. Otherwise no acute process of the abdomen or pelvis. GI consulted, recommend EGD and colonoscopy. Patient underwent EGD/colonoscopy (02/04/2020). Patient had 2 bowel movements after endoscopies, no blood noted. Patient felt well. In the evening however after endoscopies, patient had again bloody bowel movements. Also had bloody bowel movements this morning, February 05, 2020. Overnight required blood transfusion. Discussed with GI, plan for GI bleeding scan (02/05/2020) GI bleeding scan however was not obtained, as patient had personal emergency, and left AMA (02/05/2020) 2. History of hypertension, currently not on any medications. Currently blood pressure seems to be stable. Follow up with PCP. Total Time Total Time Spent Total Time Spent (In Minutes): 0 Discharge Plan Discharge Items Patient Disposition: Against Medical Advice Reason For Visit: RECTAL BLEED Discharge Diagnosis: GI bleed Activity: As commented below Activity Comment: No instructions were provided as patient left AMA Non-emergency contact: Primary Care Provider Call non-emergency contact if: you have any medication questions and your symptoms worsen Follow-up/Referrals: Tian William MD [Primary Care Provider] - Diet: Clear liquid Addtl Attending Provider Instructions: It was recommended to obtain GI bleeding scan by gastroenterology. Study was ordered but not obtained as patient left AMA. We strongly recommended that patient would have study done while in the hospital. If patient cannot return to hospital, recommend to obtain GI bleeding scan as outpatient (however not sure if this kind of study can be done as outpatient). Clearly, if bleeding is found patient does need to be in the hospital that has ability to stop the bleed. It does depend on where the bleeding is, to recommend appropriate facility. (Patient's son called the hospital, and asked for GI bleeding scan to be ordered as outpatient. After patient left AMA. I tried to reach patient's son twice, to explain that the study may not be able to be done as outpatient, however no answer.) If pt continues to have bleeding, he should return to hospital as he may need more blood transfusions and further evaluation. Pending Studies at Discharge: Yes Studies:: GI bleeding scan ordered but not obtained Stand-Alone Forms: [facility] Medications and DC Order Prescriptions: No Action No Known Home Medications RF: 0 Admission Data Admit Date/Time: 02/02/20 21:52 Attending Provider: Kobe Brewer Admit Provider: Nicho Mejia Primary Care Provider: Tian William Other Providers: Nicho Mejia ; Artie Angel ; Melissa Saunders ; Luz Pelayo ; Eleni Leonardo ; Dex Leiva ; Denver Rodriguez ; Kentrell Humphreys ; Rosie Zurita ; Ernie Church ; Esteban Herman ; Tamiko De León ; Tsering Alejandra ; Ruth iLon ; Linda Coats ; Deena Schaeffer ; Jose Juan Wolfe Other Interventions: Discharge Summary Assessment (RN) Last Done: 02/04/20 12:37 DC Date/Time DO NOT enter until pt leaves facility: 02/05/20 14:00
[2020-02-06] MEDS ORDERED: GABAPENTIN 600 MG TAB PO SCH (11:00)
--- NOTE | 2020-02-13 07:04 | Coding Query ---
PRESENT ON ADMISSION QUERY To promote full compliance with coding requirements relating to pateint care, physician participation is requested in all cases of fourchette sewer uncertainty. Please assist us with the question(s) below: Please place an X within the parenthesis (x). The following diagnosis listed in this patient's medical record require physician assistance to determine if they were present on admission (POA) or not. Please advise for each diagnosis whether it was present on admission, not present on admission, or if it was clinically undetermined. 1. ACUTE BLOOD LOSS ANEMIA (documentation begins on 02/03/20 Progress Note) (X ) Present On Admission ( ) Not Present On Admission ( ) Clinically Undetermined Thank you Blanca Currie *Definition of the present on admission (POA)-Present on admission is defined as present at the time the order for inpatient admission occurs. Conditions that develop during an outpatient encounter prior to a written order for inpatient admission (including emergency department, observation, or outpatient surgery) are considered present on admission. MTDD
== END 2020-02-05 14:00 | disposition left against medical advice (07) | DRG 811 ==
LOC: ED 17:07 → SUATTDRO 21:52 → 2S 21:52

== ENCOUNTER 2020-04-09 16:27 | Inpatient (IN) ==
[2020-04-09] MEDS ORDERED: SODIUM CHLORIDE 0.9% 1000ML 1,000 ML IV ONE (16:55)
[2020-04-09] MEDS ORDERED: ONDANSETRON INJ 2 MG/ML 2 ML VIAL IV STA ×2 (16:55→18:40)
[2020-04-09] MEDS ORDERED: MoRPHine SULFATE 4 MG/ML 1 ML CARP\\VIAL IV STA ×2 (16:55→18:20)
[2020-04-09 17:01] LABS: iSTAT Hemoglobin 10.9 g/dl (14.0-18.0); iSTAT Ionized Calcium 1.2 mmol/l (1.12-1.32); iSTAT Potassium 3.8 mmol/L (3.3-5.0)
[2020-04-09] MEDS ORDERED: IOVERSOL 100ml IV ONE (17:06)
--- NOTE | 2020-04-09 17:08 | Emergency Department Note ---
Impression & Plan Hematoma of scrotum, Trauma of scrotum, Hypotension, Leukocytosis ED Provider Note NAME: SRINIVASAN FREEDMAN AGE: 69 SEX: M : 1950 ARRIVES VIA: Walk-In INFORMANT: [Patient][family] ED PROVIDER(S): [Theo Murry MD] CHIEF COMPLAINT: Testicular trauma HISTORY OF PRESENT ILLNESS: The patient is a 69-year-old male who states that about 6 hours ago, a small farm tractor ran over his lower legs. He was in a position where the pressure from the legs being pushed together caused trauma to his scrotum. He states he had a large hydrocele in the scrotal area on the left. He thinks it may have ruptured from the pressure. He now has 6/10 pain in the scrotum and the scrotum is 3 times as big as it was before. It is also black and blue. The patient denies any injury to his head or neck or chest. He is not short of breath. No abdominal pain. He did urinate some since the accident but he states, he was just dribbling. Of note, the patient carries a history of anemia, he is not on any blood thinners. He states his legs really were not injured at all, just his scrotum was injured with this accident. REVIEW OF SYSTEMS: See HPI for pertinent positives and negatives. A total of ten systems were reviewed and were otherwise negative. PMHx/PSHx: See Below SOCIAL HISTORY: See Below. PHYSICAL EXAM: GENERAL: Patient is in moderate distress from pain. HEENT: No acute trauma, normocephalic atraumatic, mucous membranes moist, no nasal congestion, no scleral icterus. NECK: No stridor, no adenopathy, no meningismus, trachea is midline. LUNGS: Clear to auscultation bilaterally, no wheeze, no rhonchi, breath sounds equal. HEART: Tachycardic, regular rhythm, no murmurs. ABDOMEN: Soft, nontender, bowel sounds positive, no hernias, no peritonitis. EXTREMITIES: No cyanosis or edema, full range of motion of all the joints without pain or difficulty, no signs for acute trauma. NEUROLOGIC: Oriented x 3, no acute motor or sensory deficits, no focal weakness. SKIN: No rash, no jaundice, no diaphoresis. Groin: The patient has a very large scrotal sac. The scrotum is the size of a volleyball. The patient is not circumcised. The entire scrotal area is contused. The contusion extends to the shaft of the penis. There is some fullness tracking up the left inguinal canal consistent with a potential hernia. The scrotum is firm to touch and is tender diffusely. I cannot assess his testicles per se because of all the swelling. DIFFERENTIAL DIAGNOSIS: Arterial or venous bleeding, testicular rupture, testicular torsion, hydrocele rupture, bladder rupture or injury, intra-abdominal bleeding or injury, pelvic fracture, hip fracture, head injury. I also considered the possibility of neck, chest or back trauma. Extremity fracture was considered a possibility. EMERGENCY DEPARTMENT COURSE/PROCEDURES: ECG: Indication was tachycardia. The ECG shows a normal sinus rhythm with a rate of 80. There is some sinus arrhythmia. The QTc is 440. There is no ST elevation, no PVCs. Continuous Cardiac Monitoring: An order was placed for continuous cardiac monitoring. The monitor shows a rate of 84 with normal sinus rhythm. Critical Care Note: I have personally spent greater than 38 minutes of critical care time in the direct management of this patient. This includes bedside care, interpretation of diagnostic studies, and testing, discussion with consultants, patient, and family members, and other required patient management activities. This 38 minutes is in excess of all separately billable procedures. MEDICAL DECISION MAKING: There is a mild leukocytosis, this could be consistent with infection or just his pain alone. Hemoglobin is low at 10 but this is baseline looking back at previous testing. There is a normal platelet count. No coagulopathy. No significant electrolyte abnormality or kidney failure. No worrisome liver enzyme elevation. ECG shows a sinus rhythm, no acute ischemia. Chest film does not show pneumonia, free air or any type of rib injury. Rapid coronavirus testing was negative. Abdominal and pelvis CT did not show any evidence for acute intra-abdominal injury. Scrotal hematoma was noted. No pelvic fracture. Stat bedside testicular ultrasound showed a large hematoma in the scrotum, the left testicle was hard to visualize but seemed intact with the right testicle appeared normal. The patient was aggressively managed. I was called to see him emergently. He was given IV saline 1 L. He was given IV morphine for pain, IV Zofran for skyler sea. He eventually was given IV Dilaudid for pain control. I did speak with urology after my first patient encounter. The patient is going to be seen by urology now that it appears there are no other injuries from this trauma. The injuries appear isolated to the scrotum. The patient understands that he may lose his left testicle. He understands the need for an operation. Patient is still having scrotal pain but his pain is less than when he first arrived. In short, I cannot find any evidence for injury to the patient's head, neck, chest or abdomen. No obvious extremity injuries. His injury complex appears isolated to the scrotum. Past Med/Surg History Medical History Anemia Hypertension Surgical History No pertinent past surgical history Social History Smoking Status: Former smoker Tobacco Type: Cigarettes Second Hand Exposure: No; Hx Alcohol Use: Yes Alcohol type: beer Hx Substance Use: No Preferred Language: Lao Communication Ability: Effective Instruction Assistant Principal Required: No Beliefs That Will Affect Care: None Current Living Situation: Alone Feels Safe at Home: Yes Allergies Allergies Allergy/AdvReac Type Severity Reaction Status Date / Time No Known Allergies Allergy Verified 02/02/20 19:49 Home Meds Home Medications Medication Instructions Recorded Confirmed lisinopril 10 mg PO DAILY 04/09/20 04/09/20 pantoprazole 40 mg PO DAILY 04/09/20 04/09/20 Results & Data (ED) Vital Signs Vital Signs - 24 hr 04/09/20 16:31 04/09/20 16:38 04/09/20 16:52 Temperature 36.5 C Temperature Source Oral Pulse Rate 131 H 109 H 99 H Pulse Rate [Left Finger] Pulse Rate from SpO2 Sensor 102 H Respiratory Rate 12 24 18 Respiratory Effort / Characteristics Spontaneous Blood Pressure 95/68 L 100/59 L 108/78 Blood Pressure [Right Arm] Blood Pressure Mean 77 66 83 Blood Pressure Mean [Right Arm] Blood Pressure Position Sitting Pulse Oximetry 100 100 99 Oxygen Delivery Method Room Air Oxygen Flow Rate Sepsis Recent Fever Within 48 Hours No Sepsis New/Unexplained Change in Mental Status No Sepsis Action Taken by Nursing No Action Required 04/09/20 17:13 04/09/20 17:31 04/09/20 18:00 Temperature Temperature Source Pulse Rate 93 H 91 H 79 Pulse Rate [Left Finger] Pulse Rate from SpO2 Sensor 92 H 81 Respiratory Rate 18 18 17 Respiratory Effort / Characteristics Blood Pressure 133/68 106/78 125/77 Blood Pressure [Right Arm] Blood Pressure Mean 73 93 90 Blood Pressure Mean [Right Arm] Blood Pressure Position Pulse Oximetry 98 100 99 Oxygen Delivery Method Oxygen Flow Rate Sepsis Recent Fever Within 48 Hours Sepsis New/Unexplained Change in Mental Status Sepsis Action Taken by Nursing 04/09/20 18:30 04/09/20 19:13 04/09/20 19:27 Temperature 36.7 C Temperature Source Oral Pulse Rate 84 86 Pulse Rate [Left Finger] 80 Pulse Rate from SpO2 Sensor 82 Respiratory Rate 14 18 16 Respiratory Effort / Characteristics Blood Pressure 119/74 106/76 Blood Pressure [Right Arm] 107/78 Blood Pressure Mean 95 Blood Pressure Mean [Right Arm] 87 Blood Pressure Position Pulse Oximetry 99 96 98 Oxygen Delivery Method Room Air Nasal Cannula Oxygen Flow Rate 2 Sepsis Recent Fever Within 48 Hours Sepsis New/Unexplained Change in Mental Status Sepsis Action Taken by Halfway Medications Current Medication List: was personally reviewed by me Laboratory Data Attestation: I reviewed the patient's lab results. Result diagrams: 04/09/20 16:41 04/09/20 16:41 Lab Results 04/09/20 04/09/20 04/09/20 Range/Units 16:41 16:41 16:41 WBC 13.09 H (4.8-10.8) K/uL RBC 3.48 L (4.7-6.1) M/uL Hgb 10.1 L (14.0-18.0) g/dL POC Hgb (14.0-18.0) g/dl Hct 31.3 L (42-52) % POC Hct (42-52) % MCV 89.9 (80-100) fL MCH 29.0 (25-34) pg MCHC 32.3 (32-36) g/dL RDW Std Deviation 64.3 H (36.4-46.3) fL RDW Coeff of Yecenia 19.6 H (11.5-14.5) % Plt Count 177 (130-400) K/uL Platelet Estimate Normal (Normal) PT 11.4 (9.0-12.0) Seconds INR 1.1 (0.9-1.1) APTT 26.1 (21.0-31.0) Seconds PTT Ratio 0.9 POC Sodium (135-144) mmol/L Sodium (136-145) mmol/L POC Potassium (3.3-5.0) mmol/L Potassium (3.5-5.1) mmol/L POC Chloride (101-112) mmol/L Chloride (98-107) mmol/L Carbon Dioxide (21-32) mmol/L POC Total CO2 (24-31) mmol/L Anion Gap (3-11) POC Anion Gap (16-25) mmol/L POC BUN (7-18) mg/dl BUN (7-18) mg/dl Creatinine (0.6-1.4) mg/dl POC Creatinine (0.6-1.3) mg/dl Est Cr Clr Drug Dosing Est GFR ( Amer) Est GFR (Non-Af Amer) BUN/Creatinine Ratio (10-20) Glucose (70-99) mg/dl POC Glucose (other) (70-99) mg/dl Calcium (8.5-10.1) mg/dl POC Ioniz Calcium Saadia (1.12-1.32) mmol/l Total Bilirubin (0.2-1) mg/dl AST (15-37) U/L ALT (12-78) U/L Alkaline Phosphatase (45-117) U/L Total Protein (6.4-8.2) gm/dl Albumin (3.4-5.0) gm/dl Globulin (2.5-4.0) gm/dl Albumin/Globulin Ratio (0.9-2) COVID-19 Eval Order SARS-CoV-2, RNA, NAAT (NEGATIVE) Blood Type O Positive Antibody Screen NEGATIVE 04/09/20 04/09/20 04/09/20 Range/Units 16:41 16:48 18:00 WBC (4.8-10.8) K/uL RBC (4.7-6.1) M/uL Hgb (14.0-18.0) g/dL POC Hgb 10.9 L (14.0-18.0) g/dl Hct (42-52) % POC Hct 32 L (42-52) % MCV (80-100) fL MCH (25-34) pg MCHC (32-36) g/dL RDW Std Deviation (36.4-46.3) fL RDW Coeff of Yecenia (11.5-14.5) % Plt Count (130-400) K/uL Platelet Estimate (Normal) PT (9.0-12.0) Seconds INR (0.9-1.1) APTT (21.0-31.0) Seconds PTT Ratio POC Sodium 139 (135-144) mmol/L Sodium 139 (136-145) mmol/L POC Potassium 3.8 (3.3-5.0) mmol/L Potassium 3.9 (3.5-5.1) mmol/L POC Chloride 102 (101-112) mmol/L Chloride 105 (98-107) mmol/L Carbon Dioxide 25 (21-32) mmol/L POC Total CO2 23 L (24-31) mmol/L Anion Gap 9.0 (3-11) POC Anion Gap 19.0 (16-25) mmol/L POC BUN 16 (7-18) mg/dl BUN 15 (7-18) mg/dl Creatinine 1.17 (0.6-1.4) mg/dl POC Creatinine 1.0 (0.6-1.3) mg/dl Est Cr Clr Drug Dosing Not Reportable Est GFR ( Amer) 74.3 Est GFR (Non-Af Amer) 64.1 BUN/Creatinine Ratio 13.1 (10-20) Glucose 185 H (70-99) mg/dl POC Glucose (other) 178 H (70-99) mg/dl Calcium 8.9 (8.5-10.1) mg/dl POC Ioniz Calcium Saadia 1.20 (1.12-1.32) mmol/l Total Bilirubin 1.4 H (0.2-1) mg/dl AST 24 (15-37) U/L ALT 19 (12-78) U/L Alkaline Phosphatase 48 (45-117) U/L Total Protein 6.4 (6.4-8.2) gm/dl Albumin 3.4 (3.4-5.0) gm/dl Globulin 3.0 (2.5-4.0) gm/dl Albumin/Globulin Ratio 1.1 (0.9-2) COVID-19 Eval [facility] [place] SARS-CoV-2, RNA, NAAT (NEGATIVE) Blood Type Antibody Screen 04/09/20 Range/Units 18:00 WBC (4.8-10.8) K/uL RBC (4.7-6.1) M/uL Hgb (14.0-18.0) g/dL POC Hgb (14.0-18.0) g/dl Hct (42-52) % POC Hct (42-52) % MCV (80-100) fL MCH (25-34) pg MCHC (32-36) g/dL RDW Std Deviation (36.4-46.3) fL RDW Coeff of Yecenia (11.5-14.5) % Plt Count (130-400) K/uL Platelet Estimate (Normal) PT (9.0-12.0) Seconds INR (0.9-1.1) APTT (21.0-31.0) Seconds PTT Ratio POC Sodium (135-144) mmol/L Sodium (136-145) mmol/L POC Potassium (3.3-5.0) mmol/L Potassium (3.5-5.1) mmol/L POC Chloride (101-112) mmol/L Chloride (98-107) mmol/L Carbon Dioxide (21-32) mmol/L POC Total CO2 (24-31) mmol/L Anion Gap (3-11) POC Anion Gap (16-25) mmol/L POC BUN (7-18) mg/dl BUN (7-18) mg/dl Creatinine (0.6-1.4) mg/dl POC Creatinine (0.6-1.3) mg/dl Est Cr Clr Drug Dosing Est GFR ( Amer) Est GFR (Non-Af Amer) BUN/Creatinine Ratio (10-20) Glucose (70-99) mg/dl POC Glucose (other) (70-99) mg/dl Calcium (8.5-10.1) mg/dl POC Ioniz Calcium Saadia (1.12-1.32) mmol/l Total Bilirubin (0.2-1) mg/dl AST (15-37) U/L ALT (12-78) U/L Alkaline Phosphatase (45-117) U/L Total Protein (6.4-8.2) gm/dl Albumin (3.4-5.0) gm/dl Globulin (2.5-4.0) gm/dl Albumin/Globulin Ratio (0.9-2) COVID-19 Eval Order SARS-CoV-2, RNA, NAAT NEGATIVE (NEGATIVE) Blood Type Antibody Screen Administered Medications Discontinued Medications Hydromorphone HCl (Hydromorphone Inj 0.5 Mg/0.5 Ml Syr) 0.5 mg IV NOW STA Stop: 04/09/20 18:41 Last Admin: 04/09/20 18:45 Dose: 0.5 mg Documented by: [id number] Sodium Chloride (Nss 1000ml) 1,000 mls @ 999 mls/hr IV .Q1H1M ONE Stop: 04/09/20 17:55 Last Infusion: 04/09/20 17:51 Dose: 0 mls/hr Documented by: [id number] Admin: 04/09/20 16:50 Dose: 999 mls/hr Documented by: [id number] Cefazolin Sodium (Ancef 1000mg) 1,000 mg in 7.5 mls @ 2.5 mls/min IV ONCE ONE Stop: 04/09/20 20:13 Last Admin: 04/09/20 20:07 Dose: 2.5 mls/min Documented by: [id number] Ioversol (Ioversol 100ml) 94 ml IV ONCE ONE Stop: 04/09/20 17:07 Last Admin: 04/09/20 17:06 Dose: 94 ml Documented by: [id number] Morphine Sulfate (Morphine Sulfate 4 Mg/Ml 1 Ml Carp\Vial) 4 mg IV NOW STA Stop: 04/09/20 16:56 Last Admin: 04/09/20 17:04 Dose: 4 mg Documented by: [id number] Morphine Sulfate (Morphine Sulfate 4 Mg/Ml 1 Ml Carp\Vial) 4 mg IV NOW STA Stop: 04/09/20 18:21 Last Admin: 04/09/20 18:26 Dose: 4 mg Documented by: [id number] Ondansetron HCl (Ondansetron Inj 2 Mg/Ml 2 Ml Vial) 4 mg IV NOW STA Stop: 04/09/20 16:56 Last Admin: 04/09/20 17:04 Dose: 4 mg Documented by: [id number] Ondansetron HCl (Ondansetron Inj 2 Mg/Ml 2 Ml Vial) 4 mg IV NOW STA Stop: 04/09/20 18:41 Last Admin: 04/09/20 18:45 Dose: 4 mg Documented by: [id number] Imaging Data Radiologist's Impression: ABDOMEN AND PELVIS CT WITH IV CONTRAST CT DOSE: 400.20 mGy.cm HISTORY: Acute abdominal trauma trauma TECHNIQUE: Multiaxial CT images of the abdomen and pelvis were performed following the IV administration of 94 cc of Optiray 320, A dose lowering technique was utilized adhering to the principles of ALARA. COMPARISON STUDY: CT abdomen and pelvis 02/02/2020 FINDINGS: Clear lung bases. No pneumatosis or pneumoperitoneum. Coronary artery calcifications. Scattered calcified granulomata of the spleen. Pancreas, adrenal glands, gallbladder and liver appear unremarkable. Patency of the portal and hepatic veins. Bilateral renal cysts measure up to approximately 3.2 cm on the right. There is a hyperdense ovoid and exophytic 2.6 cm lesion of the posterior interpolar right kidney. On the comparison noncontrast images demonstrate Hounsfield of 92 compatible with proteinaceous or hemorrhagic cyst. Symmetric enhancement of the kidneys. Prostamegaly. Partial distention of the bladder with mild wall thickening. Calcified plaque the abdominal aorta without aneurysm. No adenopathy. No bowel obstruction or bowel wall thickening. Trace free fluid within the dependent pelvis. Colonic diverticulosis without acute diverticulitis. There is a large complex left-sided hematocele. Small right hydrocele. Subcutaneous edema of the anterior abdominal wall and scrotum. Degenerative changes of the spine, pelvis and hips. Degenerative bony fusion of the SI joints. There is ankylosis of the thoracolumbar spine. No definite acute fracture. IMPRESSION: 1. Large left-sided hematocele, likely posttraumatic. Additionally, there is a moderate amount of subcutaneous edema of the scrotum and anterior abdominal pelvic wall. 2. Trace nonspecific free pelvic fluid. Otherwise, no acute intra-abdominal or intrapelvic abnormality identified. 3. 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 No acute fracture identified. 4. Additional findings as above. XR chest 1V portable HISTORY: 69 years-old Male trauma acute chest trauma COMPARISON: Chest radiograph 02/02/2020, CT abdomen and pelvis 04/09/2020 TECHNIQUE: Portable AP view of the chest FINDINGS: Cardiomediastinal and hilar silhouettes are within normal limits. No pneumothorax, pleural effusion, airspace consolidation or overt pulmonary edema. There are a few scattered calcified granulomata noted. Convex left curvature of the lower thoracic spine. Metallic wires project over the neck. Degenerative changes of the shoulders and spine. Retained contrast in the renal collecting systems. IMPRESSION: No acute process. US scrotum/testicle CLINICAL HISTORY: 69 years-old Male with poss testicle rupture, swelling, trauma. Acute pain and swelling of the scrotum status post trauma COMPARISON STUDY: CT abdomen and pelvis 04/09/2020 TECHNIQUE: Real-time, grayscale, and color Doppler sonography of the testes and scrotum is performed. Images are reviewed in the transverse and longitudinal planes. FINDINGS: Limited exam secondary to large scrotal hematocele. RIGHT HEMISCROTUM: The right testis measures 3.4 x 2.8 x 2.2 cm and the parenchyma appears unremarkable. No intratesticular mass is seen. Normal- appearing arterial inflow is present within the right testicle. The right epididymal head is not well visualized. No varicocele. Moderate sized right- sided hydrocele. There is mass effect on the right hemiscrotum secondary to large amount of blood products on the left. LEFT HEMISCROTUM: The left testis measures 2.9 x 1.9 x 2.0 cm and the parenchyma appears unremarkable however is partially compressed secondary to the blood products as described below. No intratesticular mass is seen. Normal-appearing arterial inflow is present within the left testicle. The left epididymal head is not well visualized. No varicocele. Large amount of blood products throughout the left hemiscrotum redemonstrated. IMPRESSION: 1. Extensive blood products within the left hemiscrotum with associated hematocele results in mass effect of the suboptimally visualized left testicle. The visualized portions of the testicle appear intact. 2. Moderate size right-sided hydrocele with unremarkable sonographic appearance of the right testicle. Blood Pressure Blood Pressure Findings: Normal blood pressure Blood Pressure Disposition: further management by hospitalist Head Trauma GCS Score: 15 Discharge Plan Visit Data Chief Complaint: Leg Injury/Pain Stated Complaint: RAN OVER BY TRACTOR ED Provider: Theo Murry Discharge Problem: Hematoma of scrotum, Trauma of scrotum, Hypotension, Leukocytosis Patient Disposition: Admitted As Inpatient Condition: Fair Discharge Instructions Interventions: ED Discharge Assessment Last Done: 04/09/20 19:13 Discharge Problem: Trauma of scrotum Qualifiers: Encounter type: initial encounter Qualified Code(s): S39.94XA - Unspecified injury of external genitals, initial encounter Hypotension Qualifiers: Hypotension type: unspecified hypotension type Qualified Code(s): I95.9 - Hypotension, unspecified Leukocytosis Qualifiers: Leukocytosis type: unspecified Qualified Code(s): D72.829 - Elevated white blood cell count, unspecified
[2020-04-09 17:23] LABS: INR 1.1 (0.9-1.1); Partial Thromboplastin Ratio 0.9; Partial Thromboplastin Time 26.1 Seconds (21.0-31.0); Prothrombin Time 11.4 Seconds (9.0-12.0)
--- NOTE | 2020-04-09 17:26 | CT Scan Report ---
ABDOMEN AND PELVIS CT WITH IV CONTRAST CT DOSE: 400.20 mGy.cm HISTORY: Acute abdominal trauma trauma TECHNIQUE: Multiaxial CT images of the abdomen and pelvis were performed following the IV administrat ion of 94 cc of Optiray 320, A dose lowering technique was utilized adhering to the principles of AL SAW. COMPARISON STUDY: CT abdomen and pelvis 02/02/2020 FINDINGS: Clear lung bases. No pneumatosis or pneumoperitoneum. Coronary artery calcifications. Scattered calci fied granulomata of the spleen. Pancreas, adrenal glands, gallbladder and liver appear unremarkable. Patency of the portal and hepatic veins. Bilateral renal cysts measure up to approximately 3.2 cm on the right. There is a hyperdense ovoid and exophytic 2.6 cm lesion of the posterior interpolar right kidney. On the comparison noncontrast images demonstrate Hounsfield of 92 compatible with proteinaceo us or hemorrhagic cyst. Symmetric enhancement of the kidneys. Prostamegaly. Partial distention of the bladder with mild wall thickening. Calcified plaque the abdominal aorta without aneurysm. No adenopa thy. No bowel obstruction or bowel wall thickening. Trace free fluid within the dependent pelvis. Colonic diverticulosis without acute diverticulitis. There is a large complex left-sided hematocele. Small ri ght hydrocele. Subcutaneous edema of the anterior abdominal wall and scrotum. Degenerative changes of the spine, pelvis and hips. Degenerative bony fusion of the SI joints. There is ankylosis of the tho racolumbar spine. No definite acute fracture. IMPRESSION: 1. Large left-sided hematocele, likely posttraumatic. Additionally, there is a moderate amount of sub cutaneous edema of the scrotum and anterior abdominal pelvic wall. 2. Trace nonspecific free pelvic fluid. Otherwise, no acute intra-abdominal or intrapelvic abnormalit y identified. 3. 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 No acute fracture identified. 4. Additional findings as above. ACT 112: Negative or not required by law. The above report was generated using voice recognition software. It may contain grammatical, syntax o r spelling errors. Electronically signed by: Jos eA Mello M.D. 04/09/2020 5:25 PM
[2020-04-09 17:34] LABS: Alanine Aminotransferase 19 U/L (12-78); Albumin Level 3.4 gm/dl (3.4-5.0); Aspartate Aminotransferase 24 U/L (15-37); BUN Creatinine Ratio 13.1 (10-20); Blood Urea Nitrogen 15 mg/dl (7-18); Calcium 8.9 mg/dl (8.5-10.1); Carbon Dioxide 25 mmol/L (21-32); Chloride 105 mmol/L (98-107); Est GFR (African American) 74.3; Est GFR (Non-African American) 64.1; Glucose 185 mg/dl (70-99); Potassium 3.9 mmol/L (3.5-5.1); Sodium 139 mmol/L (136-145)
[2020-04-09 17:37] LABS: Albumin Globulin Ratio 1.1 (0.9-2); Alkaline Phosphatase 48 U/L (45-117); Bilirubin,Total 1.4 mg/dl (0.2-1); Total Protein 6.4 gm/dl (6.4-8.2)
--- NOTE | 2020-04-09 17:37 | XRay Report ---
XR chest 1V portable HISTORY: 69 years-old Male trauma acute chest trauma COMPARISON: Chest radiograph 02/02/2020, CT abdomen and pelvis 04/09/2020 TECHNIQUE: Portable AP view of the chest FINDINGS: Cardiomediastinal and hilar silhouettes are within normal limits. No pneumothorax, pleural effusion, airspace consolidation or overt pulmonary edema. There are a few scattered calcified granulomata note d. Convex left curvature of the lower thoracic spine. Metallic wires project over the neck. Degenerat letitia changes of the shoulders and spine. Retained contrast in the renal collecting systems. IMPRESSION: No acute process. ACT 112: Negative or not required by law. The above report was generated using voice recognition software. It may contain grammatical, syntax o r spelling errors. Electronically signed by: Jose A Mello M.D. 04/09/2020 5:36 PM
[2020-04-09 18:14] LABS: Hematocrit (blood only) 31.3 % (42-52); Hemoglobin 10.1 g/dL (14.0-18.0); Mean Corpuscular Hgb Conc 32.3 g/dL (32-36); Mean Corpuscular Volume 89.9 fL (80-100); Platelet Count 177 K/uL (130-400); Platelet Estimate Normal (Normal); RDW Coefficient of Variation 19.6 % (11.5-14.5); RDW Standard Deviation 64.3 fL (36.4-46.3); Red Blood Count 3.48 M/uL (4.7-6.1); White Blood Count 13.09 K/uL (4.8-10.8)
--- NOTE | 2020-04-09 18:17 | Ultrasound Report ---
US scrotum/testicle CLINICAL HISTORY: 69 years-old Male with poss testicle rupture, swelling, trauma. Acute pain and swe lling of the scrotum status post trauma COMPARISON STUDY: CT abdomen and pelvis 04/09/2020 TECHNIQUE: Real-time, grayscale, and color Doppler sonography of the testes and scrotum is performed. Images are reviewed in the transverse and longitudinal planes. FINDINGS: Limited exam secondary to large scrotal hematocele. RIGHT HEMISCROTUM: The right testis measures 3.4 x 2.8 x 2.2 cm and the parenchyma appears unremarkab le. No intratesticular mass is seen. Normal-appearing arterial inflow is present within the right licha ticle. The right epididymal head is not well visualized. No varicocele. Moderate sized right-sided hy drocele. There is mass effect on the right hemiscrotum secondary to large amount of blood products on the left. LEFT HEMISCROTUM: The left testis measures 2.9 x 1.9 x 2.0 cm and the parenchyma appears unremarkable however is partially compressed secondary to the blood products as described below. No intratesticul ar mass is seen. Normal-appearing arterial inflow is present within the left testicle. The left epidi dymal head is not well visualized. No varicocele. Large amount of blood products throughout the left hemiscrotum redemonstrated. IMPRESSION: 1. Extensive blood products within the left hemiscrotum with associated hematocele results in mass ef fect of the suboptimally visualized left testicle. The visualized portions of the testicle appear int act. 2. Moderate size right-sided hydrocele with unremarkable sonographic appearance of the right testicle . ACT 112: Negative or not required by law. The above report was generated using voice recognition software. It may contain grammatical, syntax o r spelling errors. Electronically signed by: Jose A Mello M.D. 04/09/2020 6:15 PM
[2020-04-09] MEDS ORDERED: HYDROmorphone INJ 0.5 MG/0.5 ML SYR IV STA (18:40)
[2020-04-09] MEDS ORDERED: BUPIVACAINE 0.5 % 5 MG/1 ML MPF 30ML VIAL ONE (19:13)
[2020-04-09] MEDS ORDERED: BACITRACIN OINT 15 GM TUBE ONE (19:13)
--- NOTE | 2020-04-09 19:21 | Urology Consultation ---
Date of Consultation April 09, 2020 Assessment & Plan (1) Hematoma (nontraumatic) of seminal vesicle, spermatic cord, testis, scrotum, tunica vaginalis, or vas deferens: Trauma to the left hemiscrotum with concern for testicular rupture Large hematoma I have discussed my fear that he may have had a substantial testicular injury/rupture I have discussed scrotal exploration with washout I have stressed there is a high likelihood of left orchiectomy if the testis has ruptured He is comfortable with the plan and would like to move forward with exploration now History of Present Illness History of Present Illness 69-year-old male status post farm related accident today with a rolled tractor and crush injury to the left hemiscrotum Prior to this he has had a longstanding, very large left hydrocele He has never had trauma of this nature in the past After the trauma he developed substantial swelling and bruising extending into the left groin he has modest amounts of pain He is hemodynamically stable He has had an ultrasound and the CT Imaging studies were reviewed in detail I am unconvinced that I can see a normal testis on the left side and I fear he may have ruptured his left testis. At a minimum he has a large hematocele. Right-sided testis appears to be atraumatic and contained within a hydrocele. His CT failed to show any other fractures or injuries Full history including medical, surgical, social and family history is reviewed and discussed Details as listed, family history noncontributory in the current setting Allergies Allergy/AdvReac Type Severity Reaction Status Date / Time No Known Allergies Allergy Verified 02/02/20 19:49 Home Medications Home Medications Medication Instructions Recorded Confirmed Type lisinopril 10 mg PO DAILY 04/09/20 04/09/20 History pantoprazole 40 mg PO DAILY 04/09/20 04/09/20 History Patient History Medical History Anemia Hypertension Surgical History No pertinent past surgical history Social History Smoking Status: Former smoker Tobacco Type: Cigarettes Second Hand Exposure: No; Hx Alcohol Use: Yes Alcohol type: beer Hx Substance Use: No Preferred Language: [place] Communication Ability: Effective 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 Beliefs That Will Affect Care: None Current Living Situation: Alone Feels Safe at Home: Yes Review of Systems Constitutional: no fever, no chills and no fatigue Eyes: no worsening vision Ear, Nose, Mouth, Throat: no facial pain and no pain with swallowing Respiratory: no cough and no dyspnea Cardiovascular: no chest pain and no palpitations Gastrointestinal: + abdominal pain; no nausea and no vomiting Genitourinary: + problem reported Musculoskeletal: no back pain Integumentary: no rash and no urticaria Neurologic: no gait abnormality and no unsteadiness Psychiatric: no behavioral changes and no depression Endocrine: no fatigue Physical Exam Physical Exam: Comfortable appearing Left hemiscrotum is substantially swollen and enlarged with ecchymosis extending across the scrotal wall and into the left groin Palpable swelling extends to the external ring at a minimum. No palpable hernia Left testis is unable to be examined in the current setting. I cannot definitively palpate this testis. Constitutional: well developed and well nourished Neck: neck nontender Respiratory: normal respiratory effort; no respiratory distress and does not use accessory muscles Cardiovascular: Rate/Rhythm: regular rate Vessels: radial pulses present Extremities: no edema Gastrointestinal (Abdomen): Inspection/Auscultation: abdomen normal to inspection Percussion/Palpation: abdomen soft; abdomen nontender and no guarding Musculoskeletal: Head/Neck/Chest: normocephalic and head atraumatic Extremities: extremities normal to inspection Skin: no rashes and no lesions Trauma: no evidence of skin trauma Neurologic: awake; not obtunded Speech / Cognition: normal speech Motor/Sensory: no tremor Psychiatric: Orientation: alert and oriented x 3 Genitourinary: no CVA tenderness Lymphatic: no lymphadenopathy Results & Data ([facility]) Vital Signs (Past 12 Hours) Vital Signs Temp Pulse Resp BP Pulse Ox 04/09/20 19:13 86 18 106/76 96 04/09/20 18:30 84 14 119/74 99 04/09/20 18:00 79 17 125/77 99 04/09/20 17:31 91 H 18 106/78 100 04/09/20 17:13 93 H 18 133/68 98 04/09/20 16:52 99 H 18 108/78 99 04/09/20 16:38 109 H 24 100/59 L 100 04/09/20 16:31 36.5 C 131 H 12 95/68 L 100 PG Care Time/CCT Total # of Minutes Spent Total Time Spent with Patient: Total time spent is greater than 50% in coordination of care (as documented) at patient's floor/unit and/or counseling patient: Coding Level of Care Code 78030 Inpt Consult Level 4 Diagnoses Hematoma (nontraumatic) of seminal vesicle, spermatic cord, testis, scrotum, tunica vaginalis, or vas deferens N50.9
--- NOTE | 2020-04-09 19:37 | Anesthesiology Consultation ---
Date of Service April 09, 2020 Assessment & Plan (1) Encounter for pre-operative examination: Chart Review Chart Review: Acceptable Risk for Surgery and Patient NOT seen in Pre Admission Testing Consults Requested none ASA [id number] Proposed Anesthesia Anesthesia Type: General Risk / Benefits Reviewed With: PT / POA / Parent / Guardian, Accepts Plan and Informed Consent Obtained History Surgery Operation Date: 04/09/20 18:45 Proposed Procedures p Scrotal Exploration, Possible Left Orchiectomy(Left) - Alex Galvan MD Height/Weight Height: 5 ft 9 in Weight: 62.142 kg Allergies Allergy/AdvReac Type Severity Reaction Status Date / Time No Known Allergies Allergy Verified 02/02/20 19:49 Medications Home Medications Medication Instructions Recorded Confirmed Last Taken lisinopril 10 mg PO DAILY 04/09/20 04/09/20 04/08/20 17:00 pantoprazole 40 mg PO DAILY 04/09/20 04/09/20 04/08/20 12:00 NPO Date Last Intake of Fluids: 04/09/20 Time Last Intake of Fluids: 07:30 Date Last Intake of Solids: 04/09/20 Time Last Intake of Solids: 07:30 Past Medical History Medical History Anemia Hypertension Exercise / Class Metabolic Activity II 4-5 Yardwork/Stairs/Walk up hill Past Surgical History Surgical History No pertinent past surgical history Past Anesthesia History No Hx of Anesthesia Complications and No Family Hx of Anesthesia Complications History of PONV No Hx of PONV and No Hx of Motion Sickness Social History Smoking Status: Former smoker Hx Alcohol Use: Yes Alcohol type: beer alcohol intake frequency: a few times a week Hx Substance Use: No substance use type: does not use Physical Exam Vital Signs Last Vital Signs Temp 36.7 C 04/09/20 19:27 Pulse 80 04/09/20 19:27 Resp 16 04/09/20 19:27 BP 107/78 04/09/20 19:27 Pulse Ox 98 04/09/20 19:27 ENMT Mouth: no dentition abnormality Thyromental Distance: > or= 3.5 Finger Breadths Mallampati Class: II Neck normal visual inspection Respiratory normal respiratory effort Auscultation: lungs clear to auscultation bilaterally Cardiovascular Rate/Rhythm: regular rate and regular rhythm Psychiatric Orientation: alert Testing Laboratory Results 04/09/20 16:41 04/09/20 16:41 PT 11.4 Seconds (9.0-12.0) 04/09/20 16:41 INR 1.1 (0.9-1.1) 04/09/20 16:41 APTT 26.1 Seconds (21.0-31.0) 04/09/20 16:41 Blood Type O Positive 04/09/20 16:41 Antibody Screen NEGATIVE 04/09/20 16:41 04/09/20 16:48 POC Glucose (other) 178 H Laboratory Tests 04/09/20 04/09/20 04/09/20 16:41 16:41 16:41 WBC 13.09 H Hgb 10.1 L Hct 31.3 L Plt Count 177 PT 11.4 INR 1.1 APTT 26.1 Sodium 139 Potassium 3.9 Chloride 105 Carbon Dioxide 25 BUN 15 Creatinine 1.17 Glucose 185 H Electrocardiogram Date: 04/09/20 Findings: + NSR @
[2020-04-09] MEDS ORDERED: fentaNYL citrate 100 MCG/2 ML VIAL IV PRN (19:38)
[2020-04-09] MEDS ORDERED: ATROPINE SULFATE 0.1 MG/ML 10ML SYR IV PRN (19:38)
[2020-04-09] MEDS ORDERED: ONDANSETRON INJ 2 MG/ML 2 ML VIAL IV PRN ×2 (19:38→22:25)
[2020-04-09] MEDS ORDERED: ePHEDrine sulfate 50 MG/ML AMP IV PRN (19:38)
[2020-04-09] MEDS ORDERED: fentaNYL citrate 100 MCG/2 ML VIAL ONE ×2 (19:42)
[2020-04-09] MEDS ORDERED: CEFAZOLIN 1000MG 1,000 MG/7.5 ML SYR IV ONE (20:11)
[2020-04-09] MEDS ORDERED: ONDANSETRON INJ 2 MG/ML 2 ML VIAL ONE (21:01)
[2020-04-09] MEDS ORDERED: VASOPRESSIN 20 UNIT/ML VIAL ONE (21:01)
[2020-04-09] MEDS ORDERED: PROPOFOL IV EMULSION 10 MG/ML 20 ML VIAL IV ONE (21:01)
[2020-04-09] MEDS ORDERED: SUCCINYLCHOLINE CHLORIDE 20 MG/ML 10 ML VIAL IV ONE (21:01)
[2020-04-09] MEDS ORDERED: PHENYLEPHRINE HCL 10 MG/ML VIAL ONE (21:01)
[2020-04-09] MEDS ORDERED: LIDOCAINE HCL 2% 2 ML VIAL/AMP(20MG/ML) INFIL ONE (21:01)
--- NOTE | 2020-04-09 21:58 | Operative Report ---
PG Post Operative Report Pre & Post Diagnosis Operation Date: 04/09/20 18:45 Pre-Op Diagnosis: Trauma to the left hemiscrotum with concern for testicular rupture Post-Op Diagnosis: scrotal trauma with left testicular avulsion I identified the patient and participated in the time-out.: Yes Procedure Operation Date: 04/09/20 18:45 Actual Procedures p Scrotal Exploration, Left Orchiectomy(Left) - Alex Galvan MD Surgeon Sukhwinder Galvan MD Workflow Developer none Estimated Blood Loss 50 Findings Consistent with Post-Op Diagnosis Specimens Left testis; left hydrocele sac Description of Procedure Patient was identified in the preoperative holding area, appropriate informed consents were reviewed and completed and he was transported to the operating suite. Upon arrival received appropriate preoperative antibiotics in the form of Ancef. Of note, the patient went through significant scrotal trauma earlier in the day and has massive swelling of the left hemiscrotum extending into the groin and ecchymosis covering the entire scrotum, penis and perineum. Examination was extremely challenging secondary to the edematous tissues and massive swelling. I could not appreciate a right or left testis through the scrotal wall. After identifying the median raphae I made an incision in the left hemiscrotum. Incising through the skin revealed blood had saturated all the subcutaneous tissues greatly expanding their space. As I dissected further and penetrated through dartos fascia I encountered a massive hematoma. We evacuated several hundred cc's of old blood and clot. I then packed the cavity with lap pads. I gradually begin to remove these lap pads and look for any active bleeding. Of note, identification of normal structures was still quite challenging at that point secondary to the extensive level of edema. I gradually began to remove some of the edematous tissue and dissect through it. This led to identification of cord structures in the upper scrotum. I followed this distally and the structures blindly ended in a hematoma. I could not palpate or identify a testis within this edematous area/hematoma. I ligated these cord structures at that location. Identification of normal structures remained difficult, but I could identify what appeared to be the hydrocele sac in the upper half of the scrotum. There was no visible testis within this. This hydrocele sac extended into the left groin and towards the external ring, it did not continue above the external ring. After identifying this structure I was able to trace the previously identified cord structures as they ran just posterior to it. I dissected these further cephalad and then suture-ligated them in the upper scrotum. I removed the distal portion of these cord structures. I then began to circumferentially dissect out the hydrocele sac with the hope that I would identify more structures -and ultimately the left testis. I removed a significant portion of the sac but did not encounter testis. After removing all of the visible sac tissue, it appeared that the right testis and a large hydrocele was actually being pulled into the left hemiscrotum. I packed the upper aspect of the scrotum and turned my attention to inspection of the suspected right testis and hydrocele. I attempted to fully palpate the right hemiscrotum to determine if I could feel any cord structures or testis other than what I could visually see. At that time, I could not. This hydrocele was approximately the size of a grapefruit. I opened the hydrocele sac and saw a testis and tunica vaginalis. The fluid was clear within the hydrocele sac, but the testis was pale in color and there was no active bleeding. I could not palpate cord structures coming to or from this hydrocele sac or testis. Still concerned this was the right testis, I removed the redundant tunica vaginalis and oversewed the cut edges with a 2-0 vicryl. After completing the reduction of the hydrocele, I was able to better expose the midline septum and determine that the septum was intact and the right hemiscrotum had not been entered. I then succeeded in identifying the right testis in an upper scrotal location. There were no palpable defects. After finding the right testis, the entire understanding of the trauma became much more clear. I believe he had 2 hydroceles, 1 of the cord in 1 of the testis on the left. I believe he evulsed his left testis by tearing the cord outside of the distal hydrocele. The trauma to the cord was where I originally identified the bleeding and found a blind ending aspect of the cord. The upper hydrocele had been filled with blood, the hydrocele around the testis had been preserved. I have removed the residual aspect of the hydrocele and testis as it was no longer viable and has no active blood supply. The left hemiscrotum was then entirely evacuated and irrigated with cold saline. I then spent several minutes attempting to obtain hemostasis. There was no active bleeding but the tissues were severely traumatized and remained edematous. I placed a 1 inch [place] drain through the dependent incision. This drain was sutured in place. The proximal aspect of this drain was extended towards the external ring. I then began closure of the scrotal wall in 2 layers. Dartos fascia was hector pproximated with 2-0 Vicryl. This was infiltrated with half percent Marcaine as was the skin. I then closed the skin with a series of vertical mattress interrupted sutures utilizing 2-0 Vicryl. Bacitracin was placed over the incision scrotal fluffs were placed around the drain site. A scrotal supporter was placed and the case concluded. He was extubated and taken to the PACU in stable condition. There were no complications. Specimens of hydrocele sac and left testis were passed off the table. Again, my final assessment is that the patient suffered a left testicular avulsion and also had 2 distinct hydroceles within the left scrotum, the upper aspect was traumatized as 1 distinct sac that extended towards the inguinal canal. The lower aspect was a testicular hydrocele and all trauma occurred outside of this hydrocele. I attest to the content of the Intraoperative Record and any orders documented therein. Any exceptions are noted below.
--- NOTE | 2020-04-09 22:01 | Anesthesiology Progress Note ---
Date of Service April 09, 2020 Anesthesia Post Procedure Vital Signs Vital Signs: Temp Pulse Pulse Pulse Resp BP BP 04/09/20 21:50 82 19 130/73 04/09/20 21:40 87 21 128/71 04/09/20 21:32 37.0 C 94 H 18 151/54 H 04/09/20 19:27 36.7 C 80 16 107/78 04/09/20 19:13 86 18 106/76 04/09/20 18:30 84 14 119/74 04/09/20 18:00 79 17 125/77 04/09/20 17:31 91 H 18 106/78 04/09/20 17:13 93 H 18 133/68 04/09/20 16:52 99 H 18 108/78 04/09/20 16:38 109 H 24 100/59 L 04/09/20 16:31 36.5 C 131 H 12 95/68 L Pulse Ox 04/09/20 21:50 94 04/09/20 21:40 100 04/09/20 21:32 100 04/09/20 19:27 98 04/09/20 19:13 96 04/09/20 18:30 99 04/09/20 18:00 99 04/09/20 17:31 100 04/09/20 17:13 98 04/09/20 16:52 99 04/09/20 16:38 100 04/09/20 16:31 100 Pain Intensity Groin: Pain Intensity: 6 Transfer of Care Handoff Completed per policy Notes Mental Status: alert / awake / arousable Patient Amnestic to Procedure: Yes Nausea / Vomiting: adequately controlled Pain: adequately controlled Airway Patency, RR, SpO2: stable & adequate BP & HR: stable & adequate Hydration State: stable & adequate Anesthetic Complications: no major complications apparent
[2020-04-09 22:09] LABS: Hematocrit (blood only) 24.6 % (42-52); Mean Corpuscular Hemoglobin 29.1 pg (25-34); Mean Corpuscular Volume 89.5 fL (80-100); RDW Coefficient of Variation 19.5 % (11.5-14.5); RDW Standard Deviation 62.9 fL (36.4-46.3); Red Blood Count 2.75 M/uL (4.7-6.1); White Blood Count 9.63 K/uL (4.8-10.8)
[2020-04-09 22:13] LABS: BUN Creatinine Ratio 13.8 (10-20); Calcium 7.9 mg/dl (8.5-10.1); Creatinine Clr Calc Pharmacy 57.8 ml/min; Est GFR (Non-African American) 69.9; Potassium 4.6 mmol/L (3.5-5.1)
[2020-04-09 22:15] LABS: Mean Corpuscular Hgb Conc 32.5 g/dL (32-36); Platelet Count 113 K/uL (130-400)
[2020-04-09 22:18] LABS: Anisocytosis Present; Giant Platelets 2+; Immature Granulocytes # (auto) 0.02 K/uL (0.00-0.02); Immature Granulocytes % (auto) 0.2 %; Lymphocytes # (auto) 0.54 K/uL (1.2-3.4); Lymphocytes % (auto) 5.6 %; Monocytes # (auto) 0.76 K/uL (0.11-0.59); Monocytes % (auto) 7.9 %; Neutrophils # (auto) 8.31 K/uL (1.4-6.5); Neutrophils % (auto) 86.3 %; Platelet Estimate Decreased (Normal); Target Cells 1+
[2020-04-09] MEDS ORDERED: MoRPHine SULFATE 2 MG/ML CARP IV PRN (22:25)
[2020-04-09] MEDS ORDERED: OXYCODONE/ACETAMINOPHEN 5mg/325mg TAB PO PRN ×2 (22:25)
[2020-04-09] MEDS: LACTATED RINGER'S 1,000 ML IV SCH (22:34)
[2020-04-10 00:26] LABS: Appearance Urine Clear (Clear); Bacteria Urine Automated Negative (Negative); Bilirubin Urine Negative (Negative); Blood Urine 2+ (Negative); Color Urine Yellow; Glucose Urine UA Negative (Negative); Ketones Urine 1+ (Negative); Leukocyte Esterase Urine Negative (Negative); Nitrite Urine Negative (Negative); Protein Urine Negative (Negative); RBC Urine Automated 0-4 /hpf (0-4); Specific Gravity Urine > 1.045 (1.000-1.030); Urobilinogen Urine Negative (Negative)
[2020-04-10] MEDS: CEFAZOLIN 1000MG 1,000 MG/7.5 ML SYR IV SCH ×2 (04:29→10:57)
[2020-04-10 06:59] LABS: BUN Creatinine Ratio 13.2 (10-20); Calcium 7.8 mg/dl (8.5-10.1); Creatinine Clr Calc Pharmacy 71.2 ml/min; Est GFR (African American) 102.1; Est GFR (Non-African American) 88.1; Potassium 4.3 mmol/L (3.5-5.1)
[2020-04-10 07:19] LABS: Anisocytosis Present; Eosinophils # (auto) 0.06 K/uL (0-0.5); Hematocrit (blood only) 20.4 % (42-52); Hemoglobin 6.6 g/dL (14.0-18.0); Immature Granulocytes # (auto) 0.02 K/uL (0.00-0.02); Immature Granulocytes % (auto) 0.3 %; Lymphocytes # (auto) 1.06 K/uL (1.2-3.4); Lymphocytes % (auto) 17.7 %; Mean Corpuscular Hemoglobin 29.3 pg (25-34); Mean Corpuscular Hgb Conc 32.4 g/dL (32-36); Mean Corpuscular Volume 90.7 fL (80-100); Monocytes % (auto) 11.7 %; Neutrophils # (auto) 4.14 K/uL (1.4-6.5); Neutrophils % (auto) 69.3 %; Platelet Count 95 K/uL (130-400); Platelet Estimate Decreased (Normal); RDW Coefficient of Variation 19.5 % (11.5-14.5); RDW Standard Deviation 64.1 fL (36.4-46.3); Red Blood Count 2.25 M/uL (4.7-6.1); White Blood Count 5.98 K/uL (4.8-10.8)
[2020-04-10] MEDS ORDERED: SODIUM CHLORIDE 0.9% 250 ML IV PRN ×2 (07:33→07:54)
[2020-04-10] MEDS: LACTATED RINGER'S 1,000 ML IV SCH (07:39)
--- NOTE | 2020-04-10 07:49 | Urology Progress Note ---
Date of Service April 10, 2020 Assessment & Plan (1) Trauma of scrotum: Status post traumatic testicular avulsion and scrotal exploration last night Hemodynamically stable Hemoglobin has decreased from a low baseline to 6.6, plan for transfusion this morning Presuming he continues to progress appropriately, possible discharge home later today We will remove drain prior to discharge Admission and Anticipated Discharge Date Admission Date: April 09, 2020 Subjective Substantial improvement after the OR last night His scrotal swelling has decreased considerably He denies severe pain Overall happy with his current statustolerating diet Physical Exam Physical Exam: Severe ecchymosis continues across the full scrotum, left inguinal canal and perineum as well as the penis Edema has decreased substantially in the size of the scrotum is approximately 1/5 of the preoperative size [place] drain is draining limited amounts of bloody discharge, incision itself is appropriate and healthy Results & Data ([facility]) Vital Signs (Past 12 Hours) Vital Signs Temp Pulse Pulse Resp BP BP Pulse Ox 04/10/20 07:01 36.9 C 70 18 100/63 98 04/10/20 03:32 37.0 C 67 20 102/53 L 96 04/10/20 01:20 36.9 C 82 20 107/67 96 04/10/20 00:20 37.2 C 69 19 125/68 100 04/09/20 23:19 36.6 C 75 20 103/62 98 04/09/20 22:50 37 C 77 16 114/72 97 04/09/20 22:20 37.1 C 84 16 117/75 97 04/09/20 22:10 37.0 C 75 13 109/73 95 04/09/20 22:00 79 15 110/73 99 04/09/20 21:50 82 19 130/73 94 04/09/20 21:40 87 21 128/71 100 04/09/20 21:32 37.0 C 94 H 18 151/54 H 100 PG Care Time/CCT Total # of Minutes Spent Total Time Spent with Patient: Total time spent is greater than 50% in coordination of care (as documented) at patient's floor/unit and/or counseling patient: Coding Level of Care Code 02379 Subseq Hosp Care Lvl 2 Diagnoses Trauma of scrotum S39.94XA Encounter type: initial encounter (1) Trauma of scrotum Encounter type: initial encounter Qualified Code(s): S39.94XA - Unspecified injury of external genitals, initial encounter
[2020-04-10] MEDS ORDERED: lisinopriL 10 MG TAB PO SCH (09:00)
[2020-04-10] MEDS ORDERED: PANTOprazole 40 MG TAB PO SCH (09:00)
[2020-04-10 19:16] LABS: Hematocrit (blood only) 24.3 % (42-52); Hemoglobin 8.2 g/dL (14.0-18.0)
--- NOTE | 2020-04-11 04:52 | Electrocardiogram Report ---
Test Reason : Blood Pressure : / mmHG Vent. Rate : 080 BPM Atrial Rate : 080 BPM P-R Int : 142 ms QRS Dur : 076 ms QT Int : 382 ms P-R-T Axes : 075 062 070 degrees QTc Int : 440 ms Normal sinus rhythm with sinus arrhythmia Normal ECG When compared with ECG of 02-FEB-2020 19:30, Premature atrial complexes are no longer Present Confirmed by Pedro Fleming ([id number]) on 04/11/2020 4:51:50 AM Referred By: REFERRED SELF Confirmed By:Pedro Fleming
--- NOTE | 2020-04-13 07:30 | Discharge Summary ---
Date of Service April 13, 2020 Admission HPI Per Admitting Provider Admitted through the ER for major scrotal trauma Principal Diagnosis Testicular avulsion Discharge Data Allergies Allergy/AdvReac Type Severity Reaction Status Date / Time No Known Allergies Allergy Verified 02/02/20 19:49 Procedures Performed Operation Date: 04/09/20 18:45 Actual Procedures p Scrotal Exploration, Left Orchiectomy(Left) - Alex Galvan MD Ordered Studies 04/09/20 16:50 CT abd pelvis IV con only Stat 04/09/20 17:16 US scrotum/testicle Stat Hospital Course (1) Trauma of scrotum: Taken to the operating room for scrotal exploration and orchiectomy Details of the procedure as dictated previously In summary, he tolerated the procedure well and recovered extremely well. He did receive 2 units of blood on postoperative day 1 secondary to chronic anemia with further loss from the hemorrhage He tolerated the transfusion well and was discharged in stable condition on the evening of postoperative day #1 Total Time Total Time Spent Total Time Spent (In Minutes): 15 Discharge Plan Discharge Items Patient Disposition: Home - Self-Care Reason For Visit: SCROTAL TRAUMA, TESTICULAR AVULSION Discharge Diagnosis: scrotal trauma Condition on Discharge: Fair Activity: Per Instructions section Lifting: No more than 25 pounds Bathing Comment: may shower starting Sunday Sexual Activity: Wait until after follow-up appointment Exercise/Sports: Gradually increase as tolerated Driving/Machine Use: Resume 1 day after discharge Non-emergency contact: Urologist Call non-emergency contact if: you have any medication questions, your pain is not controlled, you have a fever and your temperature is above 101.5 Follow-up/Referrals: Alex Galvan MD [Physician] - Tian William MD [Primary Care Provider] - Diet: Regular Addtl Attending Provider Instructions: It is normal to have some drainage from the incision and the site of the drain (bottom of the scrotum). This should gradually resolve over the next week. Your bruising will ultimately improve - but will likely progress to a variety of colors prior to resolving. Please wear supportive underwear or a jock strap to support the scrotum and limit movement. Gauze pads can be inserted inside of the underwear to catch discharge from the incisions. Pending Studies at Discharge: No Stand-Alone Forms: My [facility], Opioid Pain Management, Smoking Cessation Medications and DC Order Prescriptions: New oxycodone-acetaminophen 5-325 mg tablet 1 tab PO Q6H Qty: 20 RF: 0 Continued pantoprazole 40 mg tablet,delayed release (DR/EC) 40 mg PO DAILY RF: 0 lisinopril 10 mg tablet 10 mg PO DAILY RF: 0 Discharge Orders: Discharge Order (Routine); Ordered 04/10/20 Ordered By: Alex Morales/Other Patient Handouts: Hydrocele Surgery (Hydrocelectomy), Orchiectomy Dc Admission Data Admit Date/Time: 04/10/20 11:19 Attending Provider: Alex Galvan Admit Provider: Alex Galvan Primary Care Provider: Tian William Other Interventions: Discharge Summary Assessment (RN) Last Done: 04/10/20 11:34 Coding Level of Care Code D/C Day Management <30 mins Diagnoses Trauma of scrotum S39.94XA Encounter type: initial encounter
== END 2020-04-10 20:05 | disposition home or self-care (01) | DRG 711 ==
LOC: ED 16:27 → OR 19:13 → INTOOBSV 21:40 → 3N 21:40 → OBSVTOIN 04-10 11:19